=== PATIENT | female | born 1970 | race Caucasian/White ===

== ENCOUNTER 2020-02-16 08:12 | Inpatient (IN) | payer SELFPAY ==
[2020-02-16] MEDS ORDERED: Ondansetron 4 MG/2 ML SDV IVPUSH ONE (08:44)
[2020-02-16] MEDS ORDERED: Sodium Chloride 0.9% 1,000 ML IV SCH (08:45)
--- NOTE | 2020-02-16 08:45 | EDM.PDOC ---
ED HPI GENERAL MEDICAL PROBLEM - General Chief Complaint: General Stated Complaint: BREATHING ISSUES Time Seen by Provider: 02/16/20 08:40 Source of Information: Reports: Patient History Limitations: Reports: No Limitations - History of Present Illness INITIAL COMMENTS - FREE TEXT/NARRATIVE: pt arrived breathing rapidly and short. She has been sob for about 4 days. She has not had a fever. She is coughing. She has also been vomiting for the past 3 days. Onset: Other ( started 3-4 days ago. ) Duration: Hour(s): Location: Reports: Chest, Generalized Associated Symptoms: Reports: Nausea/Vomiting Middle Back Pain Score (Numeric/FACES): 8 - Related Data Allergies Allergy/AdvReac Type Severity Reaction Status Date / Time No Known Allergies Allergy Verified 02/16/20 08:39 Home Meds: Home Meds Gabapentin [Neurontin] 900 mg PO TID 02/16/20 [History] Hydrocodone/Acetaminophen [Hydrocodon-Acetaminoph 7.5-325] 1 tab PO QID PRN 02/16/20 [History] Meloxicam 15 mg PO DAILY 02/16/20 [History] Venlafaxine HCl [Venlafaxine ER] 300 mg PO DAILY 02/16/20 [History] buPROPion [Wellbutrin SR] 300 mg PO BID 02/16/20 [History] metFORMIN [Glucophage] 1,000 mg PO BIDMEALS 02/16/20 [History] traZODone 150 mg PO BEDTIME 02/16/20 [History] Past Medical History HEENT History: Reports: Impaired Vision Cardiovascular History: Reports: Hypertension Endocrine/Metabolic History: Reports: Diabetes, Type II - Infectious Disease History Infectious Disease History: Reports: Chicken Pox - Past Surgical History GI Surgical History: Reports: Appendectomy Musculoskeletal Surgical History: Reports: Arthroscopic Knee Social & Family History - Tobacco Use Smoking Status *Q: Current Every Day Smoker Years of Tobacco use: 7 Packs/Tins Daily: 0.5 - Caffeine Use Caffeine Use: Reports: Soda - Recreational Drug Use Recreational Drug Use: No ED ROS GENERAL - Review of Systems Review Of Systems: See Below Constitutional: Reports: Malaise, Weakness, Decreased Appetite HEENT: Reports: No Symptoms Respiratory: Reports: Shortness of Breath, Wheezing, Cough Cardiovascular: Reports: No Symptoms Endocrine: Reports: No Symptoms GI/Abdominal: Reports: Nausea, Vomiting : Reports: No Symptoms Musculoskeletal: Reports: No Symptoms Skin: Reports: No Symptoms Neurological: Reports: No Symptoms Psychiatric: Reports: Anxiety ED EXAM, GENERAL - Physical Exam Exam: See Below Free Text/Narrative:: pt arrived with increased sob, breathing rapidly and nauseated and vomiting. She has been ill for the past 3-4 days. Exam Limited By: No Limitations General Appearance: Alert, Anxious, Moderate Distress, Other (pupils are equal and reactive. ) Ears: Normal TMs Nose: Normal Inspection Throat/Mouth: Normal Inspection Head: Atraumatic Neck: Normal Inspection Respiratory/Chest: Decreased Breath Sounds, Rhonchi Cardiovascular: Regular Rate, Rhythm, Tachycardia GI/Abdominal: Soft, Non-Tender (Female) Exam: Deferred Rectal (Female) Exam: Deferred Back Exam: Normal Inspection Extremities: Normal Inspection Neurological: Alert, Oriented, Normal Cognition Psychiatric: Anxious Course - Vital Signs Last Recorded V/S: Last Vital Signs Temp 37.2 C 02/16/20 08:18 Pulse 103 H 02/16/20 09:15 Resp 29 H 02/16/20 09:15 BP 120/75 02/16/20 09:15 Pulse Ox 94 L 02/16/20 09:36 - Orders/Labs/Meds Orders: Active Orders 24 hr Category Date Time Status Chest 2V [CR] Stat Exams 02/16/20 08:44 Taken Sodium Chloride 0.9% [Normal Saline] 1,000 ml Med 02/16/20 08:45 Active IV ASDIRECTED Medication Orders Sodium Chloride (Normal Saline) 1,000 mls @ 999 mls/hr IV ASDIRECTED OLYA Last Admin: 02/16/20 08:52 Dose: 999 mls/hr Documented by: RUPA Labs: Laboratory Tests 02/16/20 02/16/20 02/16/20 Range/Units 08:52 08:52 08:52 WBC 18.0 H (4.5-11.0) K/uL RBC 3.75 (3.30-5.50) M/uL Hgb 10.4 L (12.0-15.0) g/dL Hct 33.0 L (36.0-48.0) % MCV 88 (80-98) fL MCH 28 (27-31) pg MCHC 32 (32-36) % Plt Count 295 (150-400) K/uL Neut % (Auto) 85 H (36-66) % Lymph % (Auto) 7 L (24-44) % [place] % (Auto) 7 H (2-6) % Eos % (Auto) 1 L (2-4) % Baso % (Auto) 0 (0-1) % Sodium 139 L (140-148) mmol/L Potassium 3.0 L (3.6-5.2) mmol/L Chloride 100 (100-108) mmol/L Carbon Dioxide 27 (21-32) mmol/L Anion Gap 15.0 H (5.0-14.0) mmol/L BUN 6 L (7-18) mg/dL Creatinine 1.0 (0.6-1.0) mg/dL Est Cr Clr Drug Dosing TNP Estimated GFR (MDRD) 59 L (>60) Glucose 205 H (74-106) mg/dL Calcium 8.6 (8.5-10.1) mg/dL Total Bilirubin 1.1 H (0.2-1.0) mg/dL AST 25 (15-37) U/L ALT 12 (12-78) U/L Alkaline Phosphatase 110 (46-116) U/L NT-Pro-B Natriuret Pep 3227 H (5-125) pg/mL Total Protein 8.0 (6.4-8.2) g/dL Albumin 3.2 L (3.4-5.0) g/dL Globulin 4.8 H (2.3-3.5) g/dL Albumin/Globulin Ratio 0.7 L (1.2-2.2) Urine Color (YELLOW) Urine Appearance (CLEAR) Urine pH (5.0-8.0) Ur Specific [place] (1.008-1.030) Urine Protein (NEGATIVE) mg/dL Urine Glucose (UA) (NEGATIVE) mg/dL Urine Ketones (NEGATIVE) mg/dL Urine Occult Blood (NEGATIVE) Urine Nitrite (NEGATIVE) Urine Bilirubin (NEGATIVE) Urine Urobilinogen (0.2-1.0) EU/dL Ur Leukocyte Esterase (NEGATIVE) Urine RBC (0-5) Urine WBC (0-5) Ur Epithelial Cells Amorphous Sediment Urine Bacteria Urine Mucus SARS-CoV-2 RNA (KORY) (NEGATIVE) 02/16/20 02/16/20 Range/Units 09:18 09:30 WBC (4.5-11.0) K/uL RBC (3.30-5.50) M/uL Hgb (12.0-15.0) g/dL Hct (36.0-48.0) % MCV (80-98) fL MCH (27-31) pg MCHC (32-36) % Plt Count (150-400) K/uL Neut % (Auto) (36-66) % Lymph % (Auto) (24-44) % [place] % (Auto) (2-6) % Eos % (Auto) (2-4) % Baso % (Auto) (0-1) % Sodium (140-148) mmol/L Potassium (3.6-5.2) mmol/L Chloride (100-108) mmol/L Carbon Dioxide (21-32) mmol/L Anion Gap (5.0-14.0) mmol/L BUN (7-18) mg/dL Creatinine (0.6-1.0) mg/dL Est Cr Clr Drug Dosing Estimated GFR (MDRD) (>60) Glucose (74-106) mg/dL Calcium (8.5-10.1) mg/dL Total Bilirubin (0.2-1.0) mg/dL AST (15-37) U/L ALT (12-78) U/L Alkaline Phosphatase (46-116) U/L NT-Pro-B Natriuret Pep (5-125) pg/mL Total Protein (6.4-8.2) g/dL Albumin (3.4-5.0) g/dL Globulin (2.3-3.5) g/dL Albumin/Globulin Ratio (1.2-2.2) Urine Color Yellow (YELLOW) Urine Appearance Clear (CLEAR) Urine pH 6.5 (5.0-8.0) Ur Specific [place] 1.020 (1.008-1.030) Urine Protein 30 H (NEGATIVE) mg/dL Urine Glucose (UA) Negative (NEGATIVE) mg/dL Urine Ketones Negative (NEGATIVE) mg/dL Urine Occult Blood Trace-intact H (NEGATIVE) Urine Nitrite Negative (NEGATIVE) Urine Bilirubin Negative (NEGATIVE) Urine Urobilinogen 1.0 (0.2-1.0) EU/dL Ur Leukocyte Esterase Negative (NEGATIVE) Urine RBC 0-5 (0-5) Urine WBC 0-5 (0-5) Ur Epithelial Cells Few Amorphous Sediment Not seen Urine Bacteria Not seen Urine Mucus Few SARS-CoV-2 RNA (KORY) Negative (NEGATIVE) Meds: Medications Generic Name Dose Route Start Last Admin Trade Name Mounika PRN Reason Stop Dose Admin Sodium Chloride 1,000 mls @ 999 mls/hr 02/16/20 08:45 02/16/20 08:52 Normal Saline IV 999 mls/hr ASDIRECTED OLYA Administration Discontinued Medications Generic Name Dose Route Start Last Admin Trade Name Mounika PRN Reason Stop Dose Admin Ondansetron HCl 4 mg 02/16/20 08:44 02/16/20 08:51 Zofran IVPUSH 02/16/20 08:45 4 mg ONETIME ONE Administration - Re-Assessments/Exams Free Text/Narrative Re-Assessment/Exam: 02/16/20 10:47 pt had a elevated bnp so her fluids were slowed down. Her covid test was neg. Her chest xray shows a diffuse infiltrate bilateral. Her wbc is 18,000. She had o2 sats at 84 on arrival. With 2 liters she is doing much better. She was given zoforan iv and her vomiting has stopped. Departure - Departure Time of Disposition: 10:48 Disposition: Admitted As Inpatient 66 Condition: Fair Clinical Impression: Bilateral pneumonia, Elevated brain natriuretic peptide (BNP) level - Discharge Information Referrals: PCP,None [Primary Care Provider] - Forms: ED Department Discharge Care Plan Goals: admit to Dr Patricia. Sepsis Event Note (ED) - Evaluation Sepsis Screening Result: Possible Sepsis Risk - Focused Exam Vital Signs: Vital Signs Temp Pulse Resp BP Pulse Ox Pulse Ox 02/16/20 09:36 94 L 02/16/20 09:15 103 H 29 H 120/75 95 02/16/20 08:45 103 H 11 L 149/75 H 95 02/16/20 08:18 37.2 C 116 H 27 H 184/82 H 84 L 02/16/20 08:16 117 H 20 184/82 H 93 L - My Orders Last 24 Hours: My Active Orders 02/16/20 08:44 Chest 2V [CR] Stat 02/16/20 08:45 Sodium Chloride 0.9% [Normal Saline] 1,000 ml IV ASDIRECTED - Assessment/Plan Last 24 Hours: My Active Orders 02/16/20 08:44 Chest 2V [CR] Stat 02/16/20 08:45 Sodium Chloride 0.9% [Normal Saline] 1,000 ml IV ASDIRECTED
[2020-02-16] MEDS ORDERED: cefTRIAXone 1 GM in Sodium Chloride 0.9% 50 ML IV SCH (11:30)
--- NOTE | 2020-02-16 11:37 | PCM.HP.2 ---
H&P History of Present Illness - General Date of Service: 02/16/20 Admit Problem/Dx: Admission Diagnosis/Problem Admission Diagnosis/Problem Pneumonia Source of Information: Patient, Provider, RN Notes Reviewed History Limitations: Reports: No Limitations - History of Present Illness Initial Comments - Free Text/Narative: Ms. Ulrich is a 50-year-old woman who was admitted through the emergency department with cough, weakness, and shortness of breath, secondary to bilateral pneumonia. She denies any previous history of underlying pulmonary or cardiac disease. She does have a 30-year smoking history and smoked up until the time she became ill. She is noted slight progression of shortness of breath over the past several months, shortness of breath is been much worse over the past 4 days, to the point where she is short of breath at rest. She also has developed a cough that is been productive of fairly clear sputum. She denies fever, chills, or sweats. Evaluation in the emergency department she is noted to have elevated white blood cell count and infiltrates both lung wood on chest x-ray, right greater than left. COVID-19 test is negative. Middle Back Pain Score (Numeric/FACES): 8 - Related Data Allergies/Adverse Reactions: Allergies Allergy/AdvReac Type Severity Reaction Status Date / Time No Known Allergies Allergy Verified 02/16/20 08:39 Home Medications: Home Meds Gabapentin [Neurontin] 900 mg PO TID 02/16/20 [History] Hydrocodone/Acetaminophen [Hydrocodon-Acetaminoph 7.5-325] 1 tab PO QID PRN 02/16/20 [History] Meloxicam 15 mg PO DAILY 02/16/20 [History] Venlafaxine HCl [Venlafaxine ER] 300 mg PO DAILY 02/16/20 [History] buPROPion [Wellbutrin SR] 300 mg PO BID 02/16/20 [History] metFORMIN [Glucophage] 1,000 mg PO BIDMEALS 02/16/20 [History] traZODone 150 mg PO BEDTIME 02/16/20 [History] Past Medical History HEENT History: Reports: Impaired Vision Cardiovascular History: Reports: Hypertension Endocrine/Metabolic History: Reports: Diabetes, Type II - Infectious Disease History Infectious Disease History: Reports: Chicken Pox - Past Surgical History GI Surgical History: Reports: Appendectomy Musculoskeletal Surgical History: Reports: Arthroscopic Knee Social & Family History - Tobacco Use Smoking Status *Q: Current Every Day Smoker Years of Tobacco use: 7 Packs/Tins Daily: 0.5 - Caffeine Use Caffeine Use: Reports: Soda - Recreational Drug Use Recreational Drug Use: No H&P Review of Systems - Review of Systems: Review Of Systems: See Below General: Reports: Malaise, Weakness, Fatigue, Decreased Appetite. Denies: Fever, Chills HEENT: Reports: No Symptoms Pulmonary: Reports: Shortness of Breath, Cough, Hemoptysis. Denies: Wheezing, Pleuritic Chest Pain, Sputum Cardiovascular: Reports: Dyspnea on Exertion. Denies: Chest Pain, Palpitations, Orthopnea, PND, Edema, Lightheadedness, Syncope, Claudication Gastrointestinal: Reports: No Symptoms Genitourinary: Reports: No Symptoms Musculoskeletal: Reports: Back Pain (Chronic) Skin: Reports: No Symptoms Psychiatric: Reports: No Symptoms Neurological: Reports: No Symptoms Hematologic/Lymphatic: Reports: No Symptoms Immunologic: Reports: No Symptoms Exam - Exam Exam: See Below - Vital Signs Vital Signs: Last Vital Signs Temp 98.9 F 02/16/20 08:18 Pulse 103 H 02/16/20 09:15 Resp 29 H 02/16/20 09:15 BP 120/75 02/16/20 09:15 Pulse Ox 94 L 02/16/20 09:36 Weight: 185 lb - Exam Quality Assessment: Supplemental Oxygen, DVT Prophylaxis General: Alert, Oriented, Cooperative, Moderate Distress HEENT: Conjunctiva Clear, Hearing Intact, Mucosa Moist & Start, Normal Nasal Septum, Posterior Pharynx Clear, Pupils Equal Neck: Supple, Trachea Midline, +2 Carotid Pulse wo Bruit Lungs: Clear to Auscultation, Normal Respiratory Effort, Decreased Breath Sounds. No: Crackles, Rales, Rhonchi, Wheezing Cardiovascular: Regular Rate, Regular Rhythm, Normal S1, Normal S2. No: Systolic Murmur, Diastolic Murmur GI/Abdominal Exam: Soft, Non-Tender, No Organomegaly, No Distention Back Exam: Normal Inspection, Full Range of Motion Extremities: Non-Tender, No Pedal Edema Skin: Warm, Dry Neurological: Cranial Nerves Intact, Strength Equal Bilateral, Normal Speech, Normal Tone, Sensation Intact. No: Focal Deficit Neuro Extensive - Mental Status: Alert, Oriented x3, Normal Mood/Affect, Normal Cognition, Memory Intact - Patient Data Lab Results Last 24 hrs: Laboratory Results - last 24 hr 02/16/20 02/16/20 02/16/20 Range/Units 08:52 08:52 08:52 WBC 18.0 H (4.5-11.0) K/uL RBC 3.75 (3.30-5.50) M/uL Hgb 10.4 L (12.0-15.0) g/dL Hct 33.0 L (36.0-48.0) % MCV 88 (80-98) fL MCH 28 (27-31) pg MCHC 32 (32-36) % Plt Count 295 (150-400) K/uL Neut % (Auto) 85 H (36-66) % Lymph % (Auto) 7 L (24-44) % [place] % (Auto) 7 H (2-6) % Eos % (Auto) 1 L (2-4) % Baso % (Auto) 0 (0-1) % Puncture Site ABG pH (7.350-7.450) ABG pCO2 (35.0-42.0) mmHg ABG pO2 (75.0-100.0) mmHg ABG HCO3 (22.0-26.0) mmol/L ABG Total CO2 (21.0-25.0) mmol/L ABG O2 Saturation (95.0-98.0) % ABG O2 Content (15.0-23.0) %vol ABG Base Excess mm/L ABG Hemoglobin (12.0-16.0) g/dL ABG Oxyhemoglobin % ABG Carboxyhemoglobin (0.0-1.6) % ABG Methemoglobin % Laci Test O2 Delivery Device Oxygen Flow Rate L Sodium 139 L (140-148) mmol/L Potassium 3.0 L (3.6-5.2) mmol/L Chloride 100 (100-108) mmol/L Carbon Dioxide 27 (21-32) mmol/L Anion Gap 15.0 H (5.0-14.0) mmol/L BUN 6 L (7-18) mg/dL Creatinine 1.0 (0.6-1.0) mg/dL Est Cr Clr Drug Dosing TNP Estimated GFR (MDRD) 59 L (>60) Glucose 205 H (74-106) mg/dL Calcium 8.6 (8.5-10.1) mg/dL Total Bilirubin 1.1 H (0.2-1.0) mg/dL AST 25 (15-37) U/L ALT 12 (12-78) U/L Alkaline Phosphatase 110 (46-116) U/L NT-Pro-B Natriuret Pep 3227 H (5-125) pg/mL Total Protein 8.0 (6.4-8.2) g/dL Albumin 3.2 L (3.4-5.0) g/dL Globulin 4.8 H (2.3-3.5) g/dL Albumin/Globulin Ratio 0.7 L (1.2-2.2) Urine Color (YELLOW) Urine Appearance (CLEAR) Urine pH (5.0-8.0) Ur Specific [place] (1.008-1.030) Urine Protein (NEGATIVE) mg/dL Urine Glucose (UA) (NEGATIVE) mg/dL Urine Ketones (NEGATIVE) mg/dL Urine Occult Blood (NEGATIVE) Urine Nitrite (NEGATIVE) Urine Bilirubin (NEGATIVE) Urine Urobilinogen (0.2-1.0) EU/dL Ur Leukocyte Esterase (NEGATIVE) Urine RBC (0-5) Urine WBC (0-5) Ur Epithelial Cells Amorphous Sediment Urine Bacteria Urine Mucus SARS-CoV-2 RNA (KORY) (NEGATIVE) 02/16/20 02/16/20 02/16/20 Range/Units 09:18 09:30 10:56 WBC (4.5-11.0) K/uL RBC (3.30-5.50) M/uL Hgb (12.0-15.0) g/dL Hct (36.0-48.0) % MCV (80-98) fL MCH (27-31) pg MCHC (32-36) % Plt Count (150-400) K/uL Neut % (Auto) (36-66) % Lymph % (Auto) (24-44) % [place] % (Auto) (2-6) % Eos % (Auto) (2-4) % Baso % (Auto) (0-1) % Puncture Site Lt brachial ABG pH 7.473 H (7.350-7.450) ABG pCO2 36.6 (35.0-42.0) mmHg ABG pO2 59.0 L (75.0-100.0) mmHg ABG HCO3 26.5 H (22.0-26.0) mmol/L ABG Total CO2 24.5 (21.0-25.0) mmol/L ABG O2 Saturation 89.9 L (95.0-98.0) % ABG O2 Content 11.9 L (15.0-23.0) %vol ABG Base Excess 3.3 mm/L ABG Hemoglobin 9.6 L (12.0-16.0) g/dL ABG Oxyhemoglobin 87.3 % ABG Carboxyhemoglobin 2.1 H (0.0-1.6) % ABG Methemoglobin 0.8 % Laci Test N/a O2 Delivery Device Nasal cannula Oxygen Flow Rate 2.0 L Sodium (140-148) mmol/L Potassium (3.6-5.2) mmol/L Chloride (100-108) mmol/L Carbon Dioxide (21-32) mmol/L Anion Gap (5.0-14.0) mmol/L BUN (7-18) mg/dL Creatinine (0.6-1.0) mg/dL Est Cr Clr Drug Dosing Estimated GFR (MDRD) (>60) Glucose (74-106) mg/dL Calcium (8.5-10.1) mg/dL Total Bilirubin (0.2-1.0) mg/dL AST (15-37) U/L ALT (12-78) U/L Alkaline Phosphatase (46-116) U/L NT-Pro-B Natriuret Pep (5-125) pg/mL Total Protein (6.4-8.2) g/dL Albumin (3.4-5.0) g/dL Globulin (2.3-3.5) g/dL Albumin/Globulin Ratio (1.2-2.2) Urine Color Yellow (YELLOW) Urine Appearance Clear (CLEAR) Urine pH 6.5 (5.0-8.0) Ur Specific [place] 1.020 (1.008-1.030) Urine Protein 30 H (NEGATIVE) mg/dL Urine Glucose (UA) Negative (NEGATIVE) mg/dL Urine Ketones Negative (NEGATIVE) mg/dL Urine Occult Blood Trace-intact H (NEGATIVE) Urine Nitrite Negative (NEGATIVE) Urine Bilirubin Negative (NEGATIVE) Urine Urobilinogen 1.0 (0.2-1.0) EU/dL Ur Leukocyte Esterase Negative (NEGATIVE) Urine RBC 0-5 (0-5) Urine WBC 0-5 (0-5) Ur Epithelial Cells Few Amorphous Sediment Not seen Urine Bacteria Not seen Urine Mucus Few SARS-CoV-2 RNA (KORY) Negative (NEGATIVE) Result Diagrams: 02/16/20 08:52 02/16/20 08:52 Sepsis Event Note - Evaluation Sepsis Screening Result: Possible Sepsis Risk - Focused Exam Vital Signs: Vital Signs Temp Pulse Resp BP Pulse Ox Pulse Ox 02/16/20 09:36 94 L 02/16/20 09:15 103 H 29 H 120/75 95 02/16/20 08:45 103 H 11 L 149/75 H 95 02/16/20 08:18 98.9 F 116 H 27 H 184/82 H 84 L 02/16/20 08:16 117 H 20 184/82 H 93 L *Q Meaningful Use (ADM) - VTE Risk Assess *Q Each Risk Factor Represents 1 Point: Age 41 - 59 years, Obesity ( BMI > 25 kg/m2), Serious lung disease including pneumonia Total Score 1 Point Risk Factors: 3 Each Risk Factor Represents 2 Points: None Total Score 2 Point Risk Factors: 0 Each Risk Factor Represents 3 Points: None Total Score 3 Point Risk Factors: 0 Each Risk Factor Represents 5 Points: None Total Score 5 Point Risk Factors: 0 Venous Thromboembolism Risk Factor Score *Q: 3 Problem List Initiated/Reviewed/Updated: Yes Orders Last 24hrs: Active Orders 24 hr Category Date Time Status Patient Status Manage Transfer [TRANSFER] Routine ADT 02/16/20 11:22 Active Chest 2V [CR] Stat Exams 02/16/20 08:44 Taken CULTURE BLOOD [BC] Stat Lab 02/16/20 11:21 Ordered CULTURE BLOOD [BC] Stat Lab 02/16/20 11:21 Ordered Doxycycline [Vibramycin] 100 mg Med 02/16/20 12:00 Active Sodium Chloride 0.9% [Normal Saline] 100 ml IV Q12H Sodium Chloride 0.9% [Normal Saline] 1,000 ml Med 02/16/20 08:45 Active IV ASDIRECTED cefTRIAXone [Rocephin] 1 gm Med 02/16/20 11:30 Active Sodium Chloride 0.9% [Normal Saline] 50 ml IV Q24H Blood Culture x2 Reflex Set [OM.PC] Urgent Oth 02/16/20 11:20 Ordered Resuscitation Status Routine Resus Stat 02/16/20 11:24 Ordered Medication Orders Sodium Chloride (Normal Saline) 1,000 mls @ 999 mls/hr IV ASDIRECTED [facility] Last Admin: 02/16/20 08:52 Dose: 999 mls/hr Documented by: RUPA Doxycycline Hyclate 100 mg/ (Sodium Chloride) 100 mls @ 100 mls/hr IV Q12H [facility] Ceftriaxone Sodium 1 gm/ (Sodium Chloride) 50 mls @ 100 mls/hr IV Q24H [facility] Assessment/Plan Comment:: ASSESSMENT AND PLAN BILATERAL [id number] pneumonia, COVID negative. Longstanding smoking history, no history of underlying pulmonary or cardiac disease. Currently oxygenating well on supplemental oxygen. -Blood cultures pending -IV doxycycline and ceftriaxone HYPOXIC RESPIRATORY COMPROMISE-secondary to bilateral pneumonia -Supplemental oxygen as needed -Continuous pulse oximetry -Consider use of noninvasive positive pressure ventilation if she experiences further compromise in respiratory status TYPE 2 DIABETES MELLITUS -Continue metformin -4 times daily glucometers -Low-dose sliding scale Humalog MAINTENANCE ISSUES -DVT prophylaxis; Lovenox 40 mg subcu daily -GI prophylaxis; not indicated -Romero catheter; not indicated -Nutrition; consistent carbohydrate diet -Nicotine dependence; nicotine patch and nicotine gum CODE STATUS-FULL CODE ADMISSION STATUS-patient will be admitted to inpatient status, expect at least a 2 night hospital stay for evaluation and management of problems as outlined above. At the time of this admission I do not reasonably expected evaluation and management of this problem will require more than a 96 hour hospital stay. DISPOSITION-anticipate discharge to home after the hospital stay. PRIMARY CARE PROVIDER-Dr. Irving - Mortality Measure Prognosis:: Good
[2020-02-16] MEDS ORDERED: Doxycycline 100 MG in Sodium Chloride 0.9% 100 ML IV SCH (12:00)
[2020-02-16] MEDS ORDERED: Glucose Gel 15 GM in 37.5 GM Tube PO PRN (12:16)
[2020-02-16] MEDS ORDERED: Enoxaparin 40 MG/0.4 ML Syringe SUBCUT SCH (12:16)
[2020-02-16] MEDS ORDERED: Polyethylene Glycol 3350 Powder 17 GM Packet PO PRN (12:16)
[2020-02-16] MEDS ORDERED: Nicotine 14 MG/24 Hr Patch TRDERM SCH (12:16)
[2020-02-16] MEDS ORDERED: Ondansetron 4 MG/2 ML SDV IV PRN (12:16)
[2020-02-16] MEDS ORDERED: Acetaminophen 325 MG Tab PO PRN (12:16)
[2020-02-16] MEDS ORDERED: Nicotine Polacrilex 2 MG Gum CHEW PRN (12:16)
[2020-02-16] MEDS ORDERED: 50% Dextrose in Water 50 ML Syringe IV PRN (12:16)
[2020-02-16] MEDS ORDERED: Sodium Chloride 0.9% 10 ML Syringe FLUSH PRN (12:16)
[2020-02-16] MEDS: Acetaminophen/HYDROcodone 325-7.5 MG Tab PO PRN ×3 (12:43→21:22)
[2020-02-16] MEDS: Gabapentin 300 MG Cap PO SCH ×2 (13:17→21:08)
[2020-02-16] MEDS: Nicotine 14 MG/24 Hr Patch TRDERM SCH (13:18)
[2020-02-16] MEDS: Enoxaparin 40 MG/0.4 ML Syringe SUBCUT SCH (13:18)
[2020-02-16] MEDS: Sodium Chloride 0.9% 1,000 ML IV SCH ×2 (13:18→21:09)
[2020-02-16] MEDS ORDERED: Non-Formulary Medication 1 Each (Metformin [Glucophage] 1,000 MG) PO SCH (17:00)
[2020-02-16] MEDS: metFORMIN 500 MG Tab PO SCH (18:14)
[2020-02-16] MEDS: Insulin Lispro 100 Unit/ML 3 ML KwikPen SUBCUT SCH ×2 (18:15→21:17)
[2020-02-16] MEDS ORDERED: Non-Formulary Medication 1 Each (Trazodone [Trazodone] 150 MG) PO SCH (21:00)
[2020-02-16] MEDS: traZODone 50 MG Tab PO SCH (21:08)
[2020-02-16] MEDS: Albuterol 0.083% 2.5 MG/3 ML Neb Soln NEB PRN (21:08)
[2020-02-16] MEDS: buPROPion 150 MG Tab.SR PO SCH (21:08)
[2020-02-16] MEDS: Venlafaxine 75 MG Cap.ER PO SCH (21:11)
[2020-02-16] MEDS: Doxycycline 100 MG in Sodium Chloride 0.9% 100 ML IV SCH (23:41)
[2020-02-17] MEDS: Acetaminophen/HYDROcodone 325-7.5 MG Tab PO PRN ×3 (02:38→18:04)
[2020-02-17] MEDS: Sodium Chloride 0.9% 1,000 ML IV SCH (06:09)
[2020-02-17] MEDS: Insulin Lispro 100 Unit/ML 3 ML KwikPen SUBCUT SCH ×4 (07:39→20:42)
[2020-02-17] MEDS: metFORMIN 500 MG Tab PO SCH ×2 (07:44→18:00)
[2020-02-17] MEDS: Venlafaxine 75 MG Cap.ER PO SCH (08:49)
[2020-02-17] MEDS: buPROPion 150 MG Tab.SR PO SCH ×2 (08:50→20:40)
[2020-02-17] MEDS: Gabapentin 300 MG Cap PO SCH ×3 (08:50→20:39)
[2020-02-17] MEDS: Meloxicam 7.5 MG Tab PO SCH (08:50)
[2020-02-17] MEDS ORDERED: Venlafaxine 75 MG Cap.ER PO SCH (09:00)
[2020-02-17] MEDS ORDERED: VENLAFAXINE HCL 300 MG PO SCH (09:00)
[2020-02-17] MEDS ORDERED: Non-Formulary Medication 1 Each (Meloxicam [Meloxicam] 15 MG) PO SCH (09:00)
[2020-02-17] MEDS ORDERED: Potassium Chloride 20 MEQ Tab.ER PO ONE ×2 (09:00→14:00)
[2020-02-17] MEDS ORDERED: cefTRIAXone 1 GM in Sodium Chloride 0.9% 50 ML IV SCH (11:30)
[2020-02-17] MEDS ORDERED: Albuterol/Ipratropium 3.0-0.5 MG/3 ML Neb Soln ONE (11:46)
[2020-02-17] MEDS: Albuterol/Ipratropium 3.0-0.5 MG/3 ML Neb Soln NEB SCH ×3 (11:49→20:39)
[2020-02-17] MEDS: Doxycycline 100 MG in Sodium Chloride 0.9% 100 ML IV SCH (12:16)
[2020-02-17] MEDS ORDERED: Sodium Chloride 0.9% 1,000 ML IV SCH (13:15)
--- NOTE | 2020-02-17 13:19 | PCM.PN ---
- General Info Date of Service: 02/17/20 Subjective Update: Ms. Ulrich continues to experience significant shortness of breath and hypoxia with minimal exertion. We have discussed ongoing management, she prefers to hold off on BiPAP at this time unless she experiences further respiratory compromise. She has been mildly tachycardic and has noted mild increase in respiratory rate. She has remained afebrile with good improvement in white blood cell count. Functional Status: Reports: Tolerating Diet, Urinating - Review of Systems General: Reports: Weakness, Malaise. Denies: Fever, Chills Pulmonary: Reports: Shortness of Breath, Cough. Denies: Pleuritic Chest Pain, Sputum, Hemoptysis, Wheezing Cardiovascular: Reports: Dyspnea on Exertion. Denies: Chest Pain, Palpitations, Orthopnea, PND, Edema, Lightheadedness Gastrointestinal: Reports: No Symptoms Genitourinary: Reports: No Symptoms - Patient Data Vitals - Most Recent: Last Vital Signs Temp 98.5 F 02/17/20 10:50 Pulse 111 H 02/17/20 10:50 Resp 23 H 02/17/20 10:50 BP 166/71 H 02/17/20 10:50 Pulse Ox 91 L 02/17/20 12:46 Weight - Most Recent: 220 lb 3.2 oz I&O - Last 24 Hours: Intake & Output 02/16/20 02/17/20 02/17/20 22:59 06:59 14:59 Intake Total 1116 1532 755 Output Total 1000 1500 600 Balance 116 32 155 Lab Results Last 24 Hours: Laboratory Results - last 24 hr 02/16/20 02/16/20 02/17/20 Range/Units 16:51 20:59 05:11 WBC 12.1 H (4.5-11.0) K/uL RBC 3.08 L (3.30-5.50) M/uL Hgb 8.4 L D (12.0-15.0) g/dL Hct 27.7 L (36.0-48.0) % MCV 90 (80-98) fL MCH 27 (27-31) pg MCHC 30 L (32-36) % Plt Count 224 (150-400) K/uL Neut % (Auto) 72 H (36-66) % Lymph % (Auto) 17 L (24-44) % [place] % (Auto) 8 H (2-6) % Eos % (Auto) 3 (2-4) % Baso % (Auto) 0 (0-1) % Sodium (140-148) mmol/L Potassium (3.6-5.2) mmol/L Chloride (100-108) mmol/L Carbon Dioxide (21-32) mmol/L Anion Gap (5.0-14.0) mmol/L BUN (7-18) mg/dL Creatinine (0.6-1.0) mg/dL Est Cr Clr Drug Dosing mL/min Estimated GFR (MDRD) (>60) Glucose (74-106) mg/dL POC Glucose 198 H 192 H (74-106) MG/DL Calcium (8.5-10.1) mg/dL Magnesium (1.8-2.4) mg/dL 02/17/20 02/17/20 02/17/20 Range/Units 05:11 07:30 11:30 WBC (4.5-11.0) K/uL RBC (3.30-5.50) M/uL Hgb (12.0-15.0) g/dL Hct (36.0-48.0) % MCV (80-98) fL MCH (27-31) pg MCHC (32-36) % Plt Count (150-400) K/uL Neut % (Auto) (36-66) % Lymph % (Auto) (24-44) % [place] % (Auto) (2-6) % Eos % (Auto) (2-4) % Baso % (Auto) (0-1) % Sodium 142 (140-148) mmol/L Potassium 3.0 L (3.6-5.2) mmol/L Chloride 105 (100-108) mmol/L Carbon Dioxide 27 (21-32) mmol/L Anion Gap 13.0 (5.0-14.0) mmol/L BUN 7 (7-18) mg/dL Creatinine 1.0 (0.6-1.0) mg/dL Est Cr Clr Drug Dosing 63.01 mL/min Estimated GFR (MDRD) 59 L (>60) Glucose 107 H (74-106) mg/dL POC Glucose 126 H 188 H (74-106) MG/DL Calcium 8.2 L (8.5-10.1) mg/dL Magnesium 1.8 (1.8-2.4) mg/dL Mehran Results Last 24 Hours: Microbiology 02/16/20 11:34 Aerobic Blood Culture - Preliminary Blood - Arm, Right NO GROWTH AFTER 1 DAY Anaerobic Blood Culture - Preliminary NO GROWTH AFTER 1 DAY 02/16/20 10:52 Aerobic Blood Culture - Preliminary Blood - Artery NO GROWTH AFTER 1 DAY Anaerobic Blood Culture - Preliminary NO GROWTH AFTER 1 DAY Med Orders - Current: Current Medications Acetaminophen (Tylenol) 650 mg PO Q4H PRN PRN Reason: Pain (Mild 1-3)/fever Hydrocodone Bitart/Acetaminophen (Mission 325-7.5 Mg) 1 tab PO Q4H PRN PRN Reason: Pain (moderate 4-6) Last Admin: 02/17/20 07:44 Dose: 1 tab Documented by: Albuterol (Proventil Neb Soln) 2.5 mg NEB Q4H PRN PRN Reason: Shortness Of Breath/wheezing Last Admin: 02/16/20 21:08 Dose: 2.5 mg Documented by: Albuterol/Ipratropium (Duoneb 3.0-0.5 Mg/3 Ml) 3 ml NEB QIDRT [facility] Last Admin: 02/17/20 11:49 Dose: 3 ml Documented by: Bupropion HCl (Wellbutrin Sr) 150 mg PO BID [facility] Dextrose (Glutose 15) 15 gm PO ONETIME PRN PRN Reason: Hypoglycemia Dextrose/Water (Dextrose 50% In Water) 50 ml IV ONETIME PRN PRN Reason: Hypoglycemia Enoxaparin Sodium (Lovenox) 40 mg SUBCUT Q24H [facility] Last Admin: 02/16/20 13:18 Dose: 40 mg Documented by: Gabapentin (Neurontin) 900 mg PO TID [facility] Last Admin: 02/17/20 08:50 Dose: 900 mg Documented by: Ceftriaxone Sodium 1 gm/ (Sodium Chloride) 50 mls @ 100 mls/hr IV Q24H [facility] Last Admin: 02/17/20 11:27 Dose: 100 mls/hr Documented by: Doxycycline Hyclate 100 mg/ (Sodium Chloride) 100 mls @ 100 mls/hr IV Q12H [facility] Last Admin: 02/17/20 12:16 Dose: 100 mls/hr Documented by: Sodium Chloride (Normal Saline) 1,000 mls @ 50 mls/hr IV ASDIRECTED [facility] Insulin Human Lispro (Humalog) 0 unit SUBCUT QIDACANDBED [facility]; Protocol Last Admin: 02/17/20 11:29 Dose: 1 unit Documented by: Meloxicam (Mobic) 15 mg PO DAILY [facility] Last Admin: 02/17/20 08:50 Dose: 15 mg Documented by: Metformin HCl (Glucophage) 1,000 mg PO BIDMEALS [facility] Last Admin: 02/17/20 07:44 Dose: 1,000 mg Documented by: Nicotine (Habitrol) 14 mg TRDERM Q24H [facility] Last Admin: 02/16/20 13:18 Dose: Not Given Documented by: Nicotine Polacrilex (Nicorelief) 2 mg CHEW Q1H PRN PRN Reason: Other Ondansetron HCl (Zofran) 4 mg IV Q4H PRN PRN Reason: Nausea/Vomiting Last Admin: 02/16/20 23:41 Dose: 4 mg Documented by: Polyethylene Glycol (Miralax) 17 gm PO DAILY PRN PRN Reason: Constipation Potassium Chloride (Klor-Con M20) 40 meq PO ONETIME ONE Stop: 02/17/20 14:01 Sodium Chloride (Saline Flush) 10 ml FLUSH ASDIRECTED PRN PRN Reason: Keep Vein Open Trazodone HCl (Trazodone) 150 mg PO BEDTIME [facility] Last Admin: 02/16/20 21:08 Dose: 150 mg Documented by: Venlafaxine HCl (Effexor Xr) 300 mg PO DAILY [facility] Last Admin: 02/17/20 08:49 Dose: 300 mg Documented by: Discontinued Medications Albuterol/Ipratropium (Duoneb 3.0-0.5 Mg/3 Ml) Confirm Administered Dose 3 ml .ROUTE .STK-MED ONE Stop: 02/17/20 11:47 Last Admin: 02/17/20 11:50 Dose: Not Given Documented by: Bupropion HCl (Wellbutrin Sr) 300 mg PO BID [facility] Last Admin: 02/17/20 08:50 Dose: 300 mg Documented by: Sodium Chloride (Normal Saline) 1,000 mls @ 999 mls/hr IV ASDIRECTED [facility] Last Admin: 02/16/20 08:52 Dose: 999 mls/hr Documented by: Doxycycline Hyclate 100 mg/ (Sodium Chloride) 100 mls @ 100 mls/hr IV Q12H [facility] Last Admin: 02/16/20 12:15 Dose: 100 mls/hr Documented by: Ceftriaxone Sodium 1 gm/ (Sodium Chloride) 50 mls @ 100 mls/hr IV Q24H [facility] Last Admin: 02/16/20 11:51 Dose: 100 mls/hr Documented by: Sodium Chloride (Normal Saline) 1,000 mls @ 125 mls/hr IV ASDIRECTED [facility] Last Admin: 02/17/20 06:09 Dose: 125 mls/hr Documented by: Ondansetron HCl (Zofran) 4 mg IVPUSH ONETIME ONE Stop: 02/16/20 08:45 Last Admin: 02/16/20 08:51 Dose: 4 mg Documented by: Potassium Chloride (Klor-Con M20) 40 meq PO ONETIME ONE Stop: 02/17/20 09:01 Last Admin: 02/17/20 08:56 Dose: 40 meq Documented by: Venlafaxine HCl (Effexor Xr) 300 mg PO DAILY [facility] - Exam Quality Assessment: Supplemental Oxygen, DVT Prophylaxis General: Alert, Oriented, Cooperative, Moderate Distress Lungs: Decreased Breath Sounds, Rhonchi. No: Rales, Rub, Wheezing Cardiovascular: Regular Rhythm, No Murmurs, Tachycardia GI/Abdominal Exam: Soft, Non-Tender, No Organomegaly, No Distention Extremities: Non-Tender, No Pedal Edema Sepsis Event Note - Evaluation Sepsis Screening Result: Sepsis Risk - Focused Exam Vital Signs: Vital Signs Temp Pulse Resp BP Pulse Ox 02/17/20 12:46 91 L 02/17/20 10:50 98.5 F 111 H 23 H 166/71 H 86 L 02/17/20 07:32 96.6 F L 97 20 144/77 H 95 02/17/20 07:30 94 L 02/17/20 02:36 97.5 F 98 17 144/72 H 94 L 02/17/20 01:37 95 - Problem List Review Problem List Initiated/Reviewed/Updated: Yes - My Orders Last 24 Hours: My Active Orders 02/16/20 12:16 Acetaminophen [TylenoL] 650 mg PO Q4H PRN Acetaminophen/HYDROcodone [Mission 325-7.5 MG] 1 tab PO Q4H PRN Albuterol [Proventil Neb Soln] 2.5 mg NEB Q4H PRN Dextrose 50% in Water 50 ml IV ONETIME PRN Dextrose [Glutose 15] 15 gm PO ONETIME PRN Nicotine Polacrilex [Nicorelief] 2 mg CHEW Q1H PRN Ondansetron [Zofran] 4 mg IV Q4H PRN Sodium Chloride 0.9% [Saline Flush] 10 ml FLUSH ASDIRECTED PRN polyethylene glycoL 3350 [MiraLAX] 17 gm PO DAILY PRN 02/16/20 12:16 Patient Status [ADT] Routine Ambulate [RC] QID Communication Order [RC] STAT Diabetes Education [RC] Click to Edit Height and Weight [RC] DAILY Intake and Output [RC] QSHIFT Notify Provider Vital Signs [RC] ASDIRECTED Notify Provider [RC] PRN Oxygen Therapy [RC] PRN Peripheral IV Care [RC] . DIRECTED Pulse Oximetry [RC] CONTINUOUS RT Aerosol Therapy [RC] ASDIRECTED Up With Assistance [RC] ASDIRECTED Up to Chair [RC] QID VTE/DVT Education [RC] Per Unit Routine Vital Signs [RC] Q4H Peripheral IV Insertion Adult [OM.PC] Routine 02/16/20 14:00 Enoxaparin [Lovenox] 40 mg SUBCUT Q24H Gabapentin [Neurontin] 900 mg PO TID Nicotine [Habitrol] 14 mg TRDERM Q24H 02/16/20 17:00 Insulin Lispro [HumaLOG] See Protocol SUBCUT QIDACANDBED metFORMIN [Glucophage] 1,000 mg PO BIDMEALS 02/16/20 21:00 traZODone 150 mg PO BEDTIME 02/17/20 00:00 Doxycycline [Vibramycin] 100 mg Sodium Chloride 0.9% [Normal Saline] 100 ml IV Q12H 02/17/20 09:00 Meloxicam [Mobic] 15 mg PO DAILY 02/17/20 11:00 Albuterol/Ipratropium [DuoNeb 3.0-0.5 MG/3 ML] 3 ml NEB QIDRT 02/17/20 11:30 cefTRIAXone [Rocephin] 1 gm Sodium Chloride 0.9% [Normal Saline] 50 ml IV Q24H 02/17/20 13:09 Potassium Chloride [Klor-Con M20] 40 meq PO ONETIME ONE 02/17/20 13:15 Sodium Chloride 0.9% @ 50 MLS/HR(1000ml) Sodium Chloride 0.9% [Normal Saline] 1,000 ml IV ASDIRECTED 02/17/20 16:30 GLUCOSE POC LAB TO COLLECT JPM [POC] QIDACANDBED 02/17/20 21:00 GLUCOSE POC LAB TO COLLECT JPM [POC] QIDACANDBED buPROPion [Wellbutrin SR] 150 mg PO BID 02/18/20 05:00 BASIC METABOLIC PANEL,BMP [CHEM] Timed CBC WITH AUTO DIFF [HEME] Timed 02/18/20 07:30 GLUCOSE POC LAB TO COLLECT JPM [POC] QIDACANDBED 02/18/20 11:30 GLUCOSE POC LAB TO COLLECT JPM [POC] QIDACANDBED 02/18/20 16:30 GLUCOSE POC LAB TO COLLECT JPM [POC] QIDACANDBED 02/18/20 21:00 GLUCOSE POC LAB TO COLLECT JPM [POC] QIDACANDBED 02/19/20 07:30 GLUCOSE POC LAB TO COLLECT JPM [POC] QIDACANDBED 02/19/20 11:30 GLUCOSE POC LAB TO COLLECT JPM [POC] QIDACANDBED 02/19/20 16:30 GLUCOSE POC LAB TO COLLECT JPM [POC] QIDACANDBED 02/19/20 21:00 GLUCOSE POC LAB TO COLLECT JPM [POC] QIDACANDBED 02/20/20 07:30 GLUCOSE POC LAB TO COLLECT JPM [POC] QIDACANDBED 02/20/20 11:30 GLUCOSE POC LAB TO COLLECT JPM [POC] QIDACANDBED 02/20/20 16:30 GLUCOSE POC LAB TO COLLECT JPM [POC] QIDACANDBED 02/20/20 21:00 GLUCOSE POC LAB TO COLLECT JPM [POC] QIDACANDBED 02/21/20 07:30 GLUCOSE POC LAB TO COLLECT JPM [POC] QIDACANDBED 02/21/20 11:30 GLUCOSE POC LAB TO COLLECT JPM [POC] QIDACANDBED - Plan Plan:: ASSESSMENT AND PLAN BILATERAL [id number] pneumonia, COVID negative. Longstanding smoking history, no history of underlying pulmonary or cardiac disease. Short of breath and hypoxic with minimal exertion, mild resting sinus tachycardia -Blood cultures pending -IV doxycycline and ceftriaxone HYPOXIC RESPIRATORY COMPROMISE-secondary to bilateral pneumonia -Supplemental oxygen as needed -Continuous pulse oximetry -Consider use of noninvasive positive pressure ventilation if she experiences further compromise in respiratory status TYPE 2 DIABETES MELLITUS -Continue metformin -4 times daily glucometers -Low-dose sliding scale Humalog MAINTENANCE ISSUES -DVT prophylaxis; Lovenox 40 mg subcu daily -GI prophylaxis; not indicated -Romero catheter; not indicated -Nutrition; consistent carbohydrate diet -Nicotine dependence; nicotine patch and nicotine gum CODE STATUS-FULL CODE ADMISSION STATUS-patient will be admitted to inpatient status, expect at least a 2 night hospital stay for evaluation and management of problems as outlined above. At the time of this admission I do not reasonably expected evaluation and management of this problem will require more than a 96 hour hospital stay. DISPOSITION-anticipate discharge to home after the hospital stay. PRIMARY CARE PROVIDER-Dr. Irving
[2020-02-17] MEDS: Nicotine 14 MG/24 Hr Patch TRDERM SCH (14:12)
[2020-02-17] MEDS: Levofloxacin/Dextrose 5%-Water 750 MG in Premix Bag 1 BAG IV SCH (14:42)
[2020-02-17] MEDS ORDERED: LORazepam 2 MG/ML SDV IVPUSH ONE (15:25)
[2020-02-17] MEDS: Metoprolol Succinate 25 MG Tab.ER PO SCH (15:40)
[2020-02-17] MEDS: Enoxaparin 40 MG/0.4 ML Syringe SUBCUT SCH (15:42)
[2020-02-17] MEDS: Piperacillin/Tazobactam/Dext 3.375 GM in Premix Bag 1 BAG IV SCH ×2 (15:52→21:28)
--- NOTE | 2020-02-17 17:27 | PCM.SN.2 ---
- Free Text/Narrative Note: Ms. Ulrich unfortunately experienced increased respiratory compromise this afternoon with increase in respiratory rate and decrease in oxygenation. She was transferred to the intensive care unit and has been started on noninvasive positive pressure ventilation. Respiratory rates had increased into the upper 30s and have improved with use of the BiPAP. Follow-up blood gases were obtained and show very adequate oxygenation as well as improvement in her PCO2 level. She has been somewhat agitated and anxious on the BiPAP and is receiving lorazepam IV as needed. Because of her decline doxycycline and ceftriaxone were discontinued and she has been placed on levofloxacin and Zosyn.
[2020-02-17] MEDS: LORazepam 2 MG/ML SDV IVPUSH PRN ×3 (18:01→23:42)
[2020-02-17] MEDS: traZODone 50 MG Tab PO SCH (20:40)
[2020-02-18] MEDS: LORazepam 2 MG/ML SDV IVPUSH PRN ×4 (01:40→08:31)
[2020-02-18] MEDS: Piperacillin/Tazobactam/Dext 3.375 GM in Premix Bag 1 BAG IV SCH (03:43)
[2020-02-18] MEDS: Albuterol/Ipratropium 3.0-0.5 MG/3 ML Neb Soln NEB SCH ×3 (07:27→14:31)
[2020-02-18] MEDS: Insulin Lispro 100 Unit/ML 3 ML KwikPen SUBCUT SCH ×3 (08:09→17:26)
[2020-02-18] MEDS: metFORMIN 500 MG Tab PO SCH (08:09)
[2020-02-18] MEDS: buPROPion 150 MG Tab.SR PO SCH (08:36)
[2020-02-18] MEDS: Venlafaxine 75 MG Cap.ER PO SCH (08:36)
[2020-02-18] MEDS: Gabapentin 300 MG Cap PO SCH (08:36)
[2020-02-18] MEDS: Meloxicam 7.5 MG Tab PO SCH (08:36)
[2020-02-18] MEDS: Metoprolol Succinate 25 MG Tab.ER PO SCH (08:36)
[2020-02-18] MEDS ORDERED: Acetaminophen 650 MG Supp RECTAL PRN (09:17)
[2020-02-18] MEDS ORDERED: methylPREDNISolone Sodium Succinate 125 MG/2 ML SDV IVPUSH ONE (09:30)
[2020-02-18] MEDS ORDERED: Heparin Sodium 5,000 UNITS in Sodium Chloride 0.9% 500 ML IV SCH ×4 (09:30)
--- NOTE | 2020-02-18 09:32 | CR ---
CHEST: 2 view CLINICAL HISTORY:Hypoxia COMPARISON:None FINDINGS: Patient has moderate diffuse bilateral pulmonary infiltrates there are nodular perihilar densities bilaterally. Heart size is mildly enlarged. No effusion is seen IMPRESSION: Moderate diffuse bilateral pulmonary infiltrates Follow-up recommended until clear to exclude underlying lesion.
[2020-02-18] MEDS: propofoL 100 ML IV SCH ×2 (09:34→14:28)
[2020-02-18] MEDS: Meropenem 1 GM in Sodium Chloride 0.9% 100 ML IV SCH ×2 (09:35→17:29)
--- NOTE | 2020-02-18 09:45 | PCM.PN ---
- General Info Date of Service: 02/18/20 Subjective Update: Overnight the patient has had further decline despite using noninvasive ventilation. Her FiO2 requirements have increased to the point that she is needing 90% this morning. Blood gases do show mild CO2 retention. She says that her shortness of breath is mild. Respiratory rate is currently around 40. Not complaining of any chest pain. White blood cell count did decrease yesterday but has jumped to 21,000 today. Blood cultures are negative so far. Chest x-ray shows increasing bilateral infiltrates. With the significant tachypnea, increasing infiltrates and a component of declining mental status along with CO2 retention the patient was electively intubated this morning. Arterial line was placed. Functional Status: Reports: Pain Controlled - Review of Systems General: Denies: Fever Pulmonary: Reports: Shortness of Breath - Patient Data Vitals - Most Recent: Last Vital Signs Temp 36.6 C 02/18/20 08:00 Pulse 107 H 02/18/20 08:36 Resp 32 H 02/18/20 08:00 BP 144/79 H 02/18/20 08:36 Pulse Ox 97 02/18/20 08:00 Weight - Most Recent: 99.881 kg I&O - Last 24 Hours: Intake & Output 02/17/20 02/18/20 02/18/20 22:59 06:59 14:59 Intake Total 560 962 100 Output Total 400 600 Balance 160 362 100 Lab Results Last 24 Hours: Laboratory Results - last 24 hr 02/17/20 02/17/20 02/18/20 Range/Units 11:30 15:29 06:20 WBC (4.5-11.0) K/uL RBC (3.30-5.50) M/uL Hgb (12.0-15.0) g/dL Hct (36.0-48.0) % MCV (80-98) fL MCH (27-31) pg MCHC (32-36) % Plt Count (150-400) K/uL Neut % (Auto) (36-66) % Lymph % (Auto) (24-44) % Dickson % (Auto) (2-6) % Eos % (Auto) (2-4) % Baso % (Auto) (0-1) % Puncture Site Lt radial L brachial ABG pH 7.352 7.295 L (7.350-7.450) ABG pCO2 45.1 H 56.3 H (35.0-42.0) mmHg ABG pO2 131.0 H 63.6 L (75.0-100.0) mmHg ABG HCO3 24.4 26.6 H (22.0-26.0) mmol/L ABG Total CO2 23.0 25.5 H (21.0-25.0) mmol/L ABG O2 Saturation 98.6 H 88.3 L (95.0-98.0) % ABG O2 Content 13.3 L 11.4 L (15.0-23.0) %vol ABG Base Excess -0.7 0.1 mm/L ABG Hemoglobin 9.6 L 9.4 L (12.0-16.0) g/dL ABG Oxyhemoglobin 96.2 86.2 % ABG Carboxyhemoglobin 1.7 H 1.5 (0.0-1.6) % ABG Methemoglobin 0.7 0.9 % Laci Test Passed O2 Delivery Device Nasal cannula Ventilator Oxygen Flow Rate L Sodium (140-148) mmol/L Potassium (3.6-5.2) mmol/L Chloride (100-108) mmol/L Carbon Dioxide (21-32) mmol/L Anion Gap (5.0-14.0) mmol/L BUN (7-18) mg/dL Creatinine (0.6-1.0) mg/dL Est Cr Clr Drug Dosing mL/min Estimated GFR (MDRD) (>60) Glucose (74-106) mg/dL POC Glucose 188 H (74-106) MG/DL Calcium (8.5-10.1) mg/dL 02/18/20 02/18/20 Range/Units 06:25 06:25 WBC 21.0 H (4.5-11.0) K/uL RBC 3.27 L (3.30-5.50) M/uL Hgb 9.3 L (12.0-15.0) g/dL Hct 29.5 L (36.0-48.0) % MCV 90 (80-98) fL MCH 28 (27-31) pg MCHC 32 (32-36) % Plt Count 258 (150-400) K/uL Neut % (Auto) 88 H (36-66) % Lymph % (Auto) 6 L (24-44) % Dickson % (Auto) 7 H (2-6) % Eos % (Auto) 0 L (2-4) % Baso % (Auto) 0 (0-1) % Puncture Site ABG pH (7.350-7.450) ABG pCO2 (35.0-42.0) mmHg ABG pO2 (75.0-100.0) mmHg ABG HCO3 (22.0-26.0) mmol/L ABG Total CO2 (21.0-25.0) mmol/L ABG O2 Saturation (95.0-98.0) % ABG O2 Content (15.0-23.0) %vol ABG Base Excess mm/L ABG Hemoglobin (12.0-16.0) g/dL ABG Oxyhemoglobin % ABG Carboxyhemoglobin (0.0-1.6) % ABG Methemoglobin % Laci Test O2 Delivery Device Oxygen Flow Rate L Sodium 140 (140-148) mmol/L Potassium 4.3 (3.6-5.2) mmol/L Chloride 104 (100-108) mmol/L Carbon Dioxide 25 (21-32) mmol/L Anion Gap 10.9 (5.0-14.0) mmol/L BUN 11 D (7-18) mg/dL Creatinine 1.1 H (0.6-1.0) mg/dL Est Cr Clr Drug Dosing 57.28 mL/min Estimated GFR (MDRD) 53 L (>60) Glucose 149 H (74-106) mg/dL POC Glucose (74-106) MG/DL Calcium 9.3 (8.5-10.1) mg/dL Mehran Results Last 24 Hours: Microbiology 02/16/20 11:34 Aerobic Blood Culture - Preliminary Blood - Arm, Right NO GROWTH AFTER 1 DAY Anaerobic Blood Culture - Preliminary NO GROWTH AFTER 1 DAY 02/16/20 10:52 Aerobic Blood Culture - Preliminary Blood - Artery NO GROWTH AFTER 1 DAY Anaerobic Blood Culture - Preliminary NO GROWTH AFTER 1 DAY Med Orders - Current: Current Medications Acetaminophen (Tylenol) 650 mg PO Q4H PRN PRN Reason: Pain (Mild 1-3)/fever Acetaminophen (Tylenol) 650 mg RECTAL Q4H PRN PRN Reason: Fever Hydrocodone Bitart/Acetaminophen ([place] 325-7.5 Mg) 1 tab PO Q4H PRN PRN Reason: Pain (moderate 4-6) Last Admin: 02/17/20 18:04 Dose: 1 tab Documented by: Albuterol (Proventil Neb Soln) 2.5 mg NEB Q4H PRN PRN Reason: Shortness Of Breath/wheezing Last Admin: 02/16/20 21:08 Dose: 2.5 mg Documented by: Albuterol/Ipratropium (Duoneb 3.0-0.5 Mg/3 Ml) 3 ml NEB QIDRT [facility] Last Admin: 02/18/20 07:27 Dose: 3 ml Documented by: Bupropion HCl (Wellbutrin Sr) 150 mg PO BID [facility] Last Admin: 02/18/20 08:36 Dose: 150 mg Documented by: Dextrose (Glutose 15) 15 gm PO ONETIME PRN PRN Reason: Hypoglycemia Dextrose/Water (Dextrose 50% In Water) 50 ml IV ONETIME PRN PRN Reason: Hypoglycemia Enoxaparin Sodium (Lovenox) 40 mg SUBCUT Q24H [facility] Last Admin: 02/17/20 15:42 Dose: 40 mg Documented by: Gabapentin (Neurontin) 900 mg PO TID [facility] Last Admin: 02/18/20 08:36 Dose: 900 mg Documented by: Sodium Chloride (Normal Saline) 1,000 mls @ 50 mls/hr IV ASDIRECTED [facility] Last Admin: 02/17/20 15:55 Dose: 50 mls/hr Documented by: Levofloxacin/Dextrose 750 mg/ (Premix) 150 mls @ 100 mls/hr IV Q24H [facility] Last Admin: 02/17/20 14:42 Dose: 100 mls/hr Documented by: Propofol (Diprivan 100 Ml) 100 mls @ 2.996 mls/hr IV TITRATE [facility]; Protocol Last Titration: 02/18/20 09:40 Dose: 30 mcg/kg/min, 17.979 mls/hr Documented by: Meropenem 1 gm/ Sodium (Chloride) 100 mls @ 200 mls/hr IV Q8H [facility] Last Admin: 02/18/20 09:35 Dose: 200 mls/hr Documented by: Vancomycin HCl 1.5 gm/ Sodium (Chloride) 250 mls @ 167 mls/hr IV Q12H [facility] Heparin Sodium (Porcine) 5,000 (units/ Sodium Chloride) 501 mls @ 5 mls/hr IV ASDIRECTED [facility] Last Admin: 02/18/20 09:30 Dose: 5 mls/hr Documented by: Insulin Human Lispro (Humalog) 0 unit SUBCUT Q6H [facility]; Protocol Lorazepam (Ativan) 0.5 mg IVPUSH Q2H PRN PRN Reason: Anxiety Last Admin: 02/18/20 08:31 Dose: 0.5 mg Documented by: Meloxicam (Mobic) 15 mg PO DAILY [facility] Last Admin: 02/18/20 08:36 Dose: 15 mg Documented by: Metformin HCl (Glucophage) 1,000 mg PO BIDMEALS [facility] Last Admin: 02/18/20 08:09 Dose: Not Given Documented by: Metoprolol Succinate (Toprol Xl) 25 mg PO DAILY [facility] Last Admin: 02/18/20 08:36 Dose: 25 mg Documented by: Nicotine (Habitrol) 14 mg TRDERM Q24H [facility] Last Admin: 02/17/20 14:12 Dose: Not Given Documented by: Ondansetron HCl (Zofran) 4 mg IV Q4H PRN PRN Reason: Nausea/Vomiting Last Admin: 02/16/20 23:41 Dose: 4 mg Documented by: Polyethylene Glycol (Miralax) 17 gm PO DAILY PRN PRN Reason: Constipation Sodium Chloride (Saline Flush) 10 ml FLUSH ASDIRECTED PRN PRN Reason: Keep Vein Open Trazodone HCl (Trazodone) 150 mg PO BEDTIME [facility] Last Admin: 02/17/20 20:40 Dose: 150 mg Documented by: Venlafaxine HCl (Effexor Xr) 300 mg PO DAILY [facility] Last Admin: 02/18/20 08:36 Dose: 300 mg Documented by: Discontinued Medications Albuterol/Ipratropium (Duoneb 3.0-0.5 Mg/3 Ml) Confirm Administered Dose 3 ml .ROUTE .STK-MED ONE Stop: 02/17/20 11:47 Last Admin: 02/17/20 11:50 Dose: Not Given Documented by: Bupropion HCl (Wellbutrin Sr) 300 mg PO BID [facility] Last Admin: 02/17/20 08:50 Dose: 300 mg Documented by: Sodium Chloride (Normal Saline) 1,000 mls @ 999 mls/hr IV ASDIRECTED [facility] Last Admin: 02/16/20 08:52 Dose: 999 mls/hr Documented by: Doxycycline Hyclate 100 mg/ (Sodium Chloride) 100 mls @ 100 mls/hr IV Q12H [facility] Last Admin: 02/16/20 12:15 Dose: 100 mls/hr Documented by: Ceftriaxone Sodium 1 gm/ (Sodium Chloride) 50 mls @ 100 mls/hr IV Q24H [facility] Last Admin: 02/16/20 11:51 Dose: 100 mls/hr Documented by: Sodium Chloride (Normal Saline) 1,000 mls @ 125 mls/hr IV ASDIRECTED [facility] Last Admin: 02/17/20 06:09 Dose: 125 mls/hr Documented by: Ceftriaxone Sodium 1 gm/ (Sodium Chloride) 50 mls @ 100 mls/hr IV Q24H [facility] Last Admin: 02/17/20 11:27 Dose: 100 mls/hr Documented by: Doxycycline Hyclate 100 mg/ (Sodium Chloride) 100 mls @ 100 mls/hr IV Q12H [facility] Last Admin: 02/17/20 12:16 Dose: 100 mls/hr Documented by: Piperacillin/Tazobactam/ (Dextrose 3.375 gm/ Premix) 50 mls @ 100 mls/hr IV Q6H [facility] Last Admin: 02/18/20 03:43 Dose: 100 mls/hr Documented by: Insulin Human [facility]pro [facility]) [facility] Protocol Last Admin: 02/18/20 08:09 Dose: Not Given Documented by: Lorazepam (Ativan) 0.5 mg IVPUSH ONETIME ONE Stop: 02/17/20 15:26 Last Admin: 02/17/20 15:42 Dose: 0.5 mg Documented by: Methylprednisolone Sodium Succinate (Solu-Medrol) 125 mg IVPUSH ONETIME ONE Stop: 02/18/20 09:31 Nicotine Polacrilex (Nicorelief) 2 mg CHEW Q1H PRN PRN Reason: Other Ondansetron HCl (Zofran) 4 mg IVPUSH ONETIME ONE Stop: 02/16/20 08:45 Last Admin: 02/16/20 08:51 Dose: 4 mg Documented by: Potassium Chloride (Klor-Con M20) 40 meq PO ONETIME ONE Stop: 02/17/20 09:01 Last Admin: 02/17/20 08:56 Dose: 40 meq Documented by: Potassium Chloride (Klor-Con M20) 40 meq PO ONETIME ONE Stop: 02/17/20 14:01 Last Admin: 02/17/20 15:42 Dose: 40 meq Documented by: Venlafaxine HCl (Effexor Xr) 300 mg PO DAILY [facility] - Exam Quality Assessment: Supplemental Oxygen General: Alert, Oriented, Cooperative, Moderate Distress (increased work of breathing ) HEENT: Pupils Equal Neck: No JVD Lungs: Crackles (diffuse and bilateral ). No: Normal Respiratory Effort (tachypnea ) Cardiovascular: Regular Rhythm, Tachycardia GI/Abdominal Exam: Soft, No Distention Extremities: No Pedal Edema. No: Increased Warmth Peripheral Pulses: 2+: Dorsalis Pedis (L), Dorsalis Pedis (R) Skin: Warm, Dry Psy/Mental Status: Alert, Anxious Sepsis Event Note - Evaluation Sepsis Screening Result: Severe Sepsis Risk - Focused Exam Vital Signs: Vital Signs Temp Pulse Pulse Resp BP BP Pulse Ox 02/18/20 08:36 107 H 144/79 H 02/18/20 08:00 36.6 C 32 H 144/79 H 97 02/18/20 07:30 118 H 02/18/20 06:00 119 H 34 H 183/41 H 93 L 02/18/20 04:00 36.9 C 101 H 30 H 107/60 92 L 02/18/20 02:00 115 H 28 H 184/84 H 91 L 02/18/20 00:00 103 H 31 H 151/81 H 95 02/17/20 22:00 96 28 H 104/52 L 95 - Problem List Review Problem List Initiated/Reviewed/Updated: Yes - My Orders Last 24 Hours: My Active Orders 02/18/20 09:16 RASS Sedation Scale [RC] ASDIRECTED Desired Level of Sedation (RASS) [AST] Click to Edit 02/18/20 09:17 Acetaminophen [Tylenol] 650 mg RECTAL Q4H PRN 02/18/20 09:22 CRP [C-REACTIVE PROTEIN] [CHEM] Routine 02/18/20 09:23 CULTURE RESPIRATORY + SMEAR [RM] Routine 02/18/20 09:26 Mechanical Ventilation [RT Ventilator, Adult] [RC] ASDIRECTED CXR [Chest 1V Frontal] [CR] Routine 02/18/20 09:30 Heparin Sodium 5,000 units Sodium Chloride 0.9% [Normal Saline] 500 ml IV ASDIRECTED Propofol Drip @ 5 MCG/KG/MIN(100ml) propofoL [Diprivan 100 ML] 100 ml IV TITRATE 02/18/20 10:00 Meropenem [Merrem] 1 gm Sodium Chloride 0.9% [Normal Saline] 100 ml IV Q8H Vancomycin 1.5 gm Sodium Chloride 0.9% [Normal Saline] 250 ml IV Q12H 02/18/20 11:00 BLOOD GAS ARTERIAL [BG] Timed 02/18/20 12:00 Glucose [Blood Glucose Check, Bedside] [RC] Q6H NPO Now [Nothing per Oral Now Diet] [DIET] Insulin Lispro [HumaLOG] See Protocol SUBCUT Q6H 02/19/20 05:00 BASIC METABOLIC PANEL,BMP [CHEM] Timed BLOOD GAS ARTERIAL [BG] Timed CBC W/O DIFF,HEMOGRAM [HEME] Timed (1) MAGNESIUM [CHEM] Timed - Plan Plan:: ASSESSMENT AND PLAN BILATERAL [id number]-[id number] pneumonia, COVID negative. Worsening respiratory status since admission. Intubated this morning. Bilateral infiltrates have progressed significantly. Cultures negative so far. -Blood cultures pending -Continue levofloxacin and Pip/Tazo -Add vancomycin -CT of the chest ACUTE RESPIRATORY FAILURE WITH HYPOXIA AND HYPERCAPNIA-secondary to bilateral pneumonia with declining respiratory status despite noninvasive ventilation overnight. Moderate CO2 retention this morning. Worsening infiltrates on chest x-ray. -Supplemental oxygen as needed -Continuous pulse oximetry -Steroids TYPE 2 DIABETES MELLITUS-sugars well controlled. -Continue metformin -4 times daily glucometers -Low-dose sliding scale TOBACCO DEPENDENCE MAINTENANCE ISSUES -DVT prophylaxis; Lovenox 40 mg subcu daily -GI prophylaxis; not indicated -Romero catheter; not indicated -Nutrition; consistent carbohydrate diet DISPOSITION-anticipate discharge to home after the hospital stay. Vin Haas MD
[2020-02-18] MEDS: Albuterol 0.083% 2.5 MG/3 ML Neb Soln NEB PRN (09:52)
[2020-02-18] MEDS ORDERED: fentaNYL 100 MCG/2 ML SDV IVPUSH PRN (10:08)
[2020-02-18] MEDS ORDERED: Sodium Chloride 0.9% 1,000 ML IV SCH (10:15)
[2020-02-18] MEDS ORDERED: Sodium Chloride 0.9% 10 ML Syringe FLUSH ONE (10:22)
[2020-02-18] MEDS ORDERED: Iopamidol 755 Mg/ML 100 ML Bottle IV SCH (10:30)
[2020-02-18] MEDS ORDERED: Sodium Chloride 0.9% 100 ML IV SCH (10:30)
--- NOTE | 2020-02-18 11:10 | ANES ---
DATE OF SERVICE: 02/18/2020 TIME: 929. INDICATIONS: I was called to the ICU by Dr. Haas to evaluate Ms. Ulrich for intubation as well as an arterial line. Risks and benefits of procedure were explained to the patient. She wished to proceed with intubation and arterial line. TECHNIQUE: I did give her 200 mg of propofol along with 100 mg of succinylcholine. A MAC 3 was used and an 8.0 endotracheal tube was inserted and confirmed. She had bilateral breath sounds equally. This was then secured with Respiratory Therapy staff. I then put a 22- gauge right Arrow radial arterial line in. This was prepped with chlorhexidine. It had a good flash and good waveform. This was then sutured with 2-0 Prolene. Tegaderm and tape were used to secure. She had a good waveform and good blood return. Mark Villanueva CRNA /[id number]
--- NOTE | 2020-02-18 11:51 | CT ---
Ang Chest CLINICAL HISTORY: Respiratory failure TECHNIQUE: Thin section axial contiguous tomographic sections were taken through the chest after bolus IV iodinated contrast administration. Coronal and sagittal images were reconstructed. Auto dosage reduction and iterative reconstruction techniques employed. FINDINGS: There is moderate motion artifact. There are diffuse dense bilateral pulmonary alveolar infiltrates with minimal aerated lung. There are small bibasal effusions left greater than right. Patient is intubated. Endotracheal tube is 1.5 cm from the andrea. The heart is enlarged. Pulmonary outflow track and main pulmonary vessels show no evidence of emboli. Sensitivity for small branching vessels is reduced because of motion. There is no aortic aneurysm or dissection. There is hepatosplenomegaly. IMPRESSION: Limited study due to motion artifact Persistent diffuse dense pulmonary alveolar infiltrates bilaterally with small bibasal effusions No pulmonary emboli are seen Cardiomegaly Hepatosplenomegaly
--- NOTE | 2020-02-18 13:07 | CR ---
CHEST: Portable 02/18/2020 at 9:56 AM CLINICAL HISTORY:Intubation COMPARISON:02/16/2020 FINDINGS: Patient has been intubated. ET tube appears to be approximately 2 cm from the andrea. There are diffuse bilateral dense pulmonary infiltrates with virtual "whiteout". IMPRESSION: Endotracheal intubation. ET tube in good position Extremely dense bilateral pulmonary infiltrates
[2020-02-18] MEDS: Nicotine 14 MG/24 Hr Patch TRDERM SCH (13:34)
[2020-02-18] MEDS: Enoxaparin 40 MG/0.4 ML Syringe SUBCUT SCH (13:40)
[2020-02-18] MEDS: Levofloxacin/Dextrose 5%-Water 750 MG in Premix Bag 1 BAG IV SCH (13:40)
[2020-02-18] MEDS ORDERED: Azithromycin 500 MG in Sodium Chloride 0.9% 250 ML IV ONE (16:30)
--- NOTE | 2020-02-18 16:51 | PCM.DCSUM1 ---
Discharge Summary - Hospital Course Brief History: 50-year-old female with history of obesity with a BMI of 35, controlled type 2 diabetes mellitus and tobacco dependence who presented with progressive cough and shortness of breath. She was admitted for management of a bilateral pneumonia with acute respiratory failure with hypoxia. Diagnosis: Stroke: No - Discharge Data Discharge Date: 02/18/20 Discharge Disposition: DC/Tfer to [facility] 02 Condition: Critical - Referral to Home Health Primary Care Physician: PCP None - Discharge Diagnosis/Problem(s) (1) Bilateral pneumonia SNOMED Code(s): 090383329 ICD Code: J18.9 - PNEUMONIA, UNSPECIFIED ORGANISM Status: Acute Current Visit: Yes Qualifiers: Pneumonia type: due to unspecified organism Lung location: unspecified part of lung Qualified Code(s): J18.9 - Pneumonia, unspecified organism (2) Acute respiratory failure with hypoxia and hypercapnia SNOMED Code(s): 048003182 ICD Code: J96.01 - ACUTE RESPIRATORY FAILURE WITH HYPOXIA; J96.02 - ACUTE RESPIRATORY FAILURE WITH HYPERCAPNIA Status: Acute Current Visit: Yes (3) Tobacco dependence SNOMED Code(s): 60947269 ICD Code: F17.200 - NICOTINE DEPENDENCE, UNSPECIFIED, UNCOMPLICATED Status: Chronic Current Visit: Yes (4) Obesity (BMI 30-39.9) SNOMED Code(s): 485729618, 679270028 ICD Code: E66.9 - OBESITY, UNSPECIFIED Status: Chronic Current Visit: Yes (5) Type 2 diabetes mellitus SNOMED Code(s): 86827614 ICD Code: E11.9 - TYPE 2 DIABETES MELLITUS WITHOUT COMPLICATIONS Status: Chronic Current Visit: No Qualifiers: Diabetes mellitus 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 Work-up in the emergency room revealed leukocytosis with a white blood cell count of 18,000 as well as evidence for a bilateral pneumonia with moderate bilateral infiltrates noted. She also had mild hypokalemia. She was hypoxic. She was started on ceftriaxone and doxycycline and admitted to the hospital for further management. Over the next 24 hours she had a slow decline with increasing respiratory rate and increasing supplemental oxygen requirements. With the decline her antibiotic coverage was adjusted to include levofloxacin and Pip/Tazo with the other 2 antibiotics being discontinued. Her white blood cell count was slightly better the day after admission but clinically she was looking worse. Respiratory rate was increasing. As the day progressed she had a further increase in her respiratory rate. Arterial blood gases were obtained and showed very mild CO2 retention but acceptable oxygenation. She was transferred to the intensive care unit and started on noninvasive positive pressure ventilation. Overnight the second night of the hospital stay she had a further decline in her respiratory status despite the noninvasive ventilation. She had increasing FiO2 requirements. Her inspiratory and expiratory pressures were both increased as the night went on and despite this she had further decline. On the day of discharge her respiratory rate had increased to the 40s despite being on the noninvasive ventilation. Her arterial blood gases showed a rising PCO2 with a level in the mid 50s. She had mild acidosis with a pH of less than 7.3. Mental status had deteriorated some. We did elect to perform intubation and mechanical ventilation with her declining respiratory status. Chest x-ray obtained after the intubation showed a significant increase in the bilateral infiltrates. Once the patient had stabilized following intubation we will performed a CT pulmonary angiogram. There is no evidence for pulmonary embolism but there were extensive bilateral infiltrates noted involving essentially all of both of her lungs. We were able to obtain a respiratory sample which showed rare gram-positive cocci and some white blood cells. A culture was set up. Vancomycin was added to the antibiotic regimen. With her declining respiratory status extensive bilateral infiltrates I think she would benefit from a higher level of care. I believe that pulmonary critical care evaluation and likely a bronchoscopy would be extremely beneficial for her. Infectious disease consultation could be considered. There was no report of preceding infection and no one else in the home is sick. COVID19 testing was negative. Her case was discussed with Dr. Neri at [facility] in [place]. He was agreeable to receive her care and transfer. She did receive a dose of a azithromycin prior to transfer. Current ventilator settings are: FiO2 80%, RR 28, TV:420 and PEEP of 16. Given the severity of her respiratory illness the plan is for her to be transferred by air ambulance. I believe the benefits of transfer greatly outweigh the risks at this point and I think she has stable for transfer at this time. - Patient Instructions Diet: NPO Activity: Bedrest Other/Special Instructions: Transfer to [facility] in [place], Dr Neri accepting. Dx: Bilateral pneumonia with acute respiratory failure with hypoxia and hypercapnia - Discharge Plan *PRESCRIPTION DRUG MONITORING PROGRAM REVIEWED*: Not Applicable *COPY OF PRESCRIPTION DRUG MONITORING REPORT IN PATIENT REYNA: Not Applicable Home Medications: Home Meds Gabapentin [Neurontin] 900 mg PO TID 02/16/20 [History] Hydrocodone/Acetaminophen [Hydrocodon-Acetaminoph 7.5-325] 1 tab PO QID PRN 02/16/20 [History] Meloxicam 15 mg PO DAILY 02/16/20 [History] Venlafaxine HCl [Venlafaxine ER] 300 mg PO DAILY 02/16/20 [History] buPROPion [Wellbutrin SR] 150 mg PO BID 02/16/20 [History] metFORMIN [Glucophage] 1,000 mg PO BIDMEALS 02/16/20 [History] traZODone 150 mg PO BEDTIME 02/16/20 [History] Metoprolol Succinate [Toprol XL] 25 mg PO DAILY 02/17/20 [History] Oxygen Therapy Mode: Mechanical Ventilation Forms: ED Department Discharge Referrals: PCP,None [Primary Care Provider] - - Discharge Summary/Plan Comment DC Time >30 min.: Yes (60 - transfer to acute hospital ) - Patient Data Vitals - Most Recent: Last Vital Signs Temp 37.1 C 02/18/20 16:00 Pulse 90 02/18/20 14:31 Resp 24 H 02/18/20 16:00 BP 126/63 02/18/20 16:00 Pulse Ox 93 L 02/18/20 16:00 Weight - Most Recent: 99.881 kg I&O - Last 24 hours: Intake & Output 02/18/20 02/18/20 02/18/20 06:59 14:59 22:59 Intake Total 962 100 Output Total 600 700 Balance 362 -600 Lab Results - Last 24 hrs: Laboratory Results - last 24 hr 02/18/20 02/18/20 02/18/20 Range/Units 06:20 06:25 06:25 WBC 21.0 H (4.5-11.0) K/uL RBC 3.27 L (3.30-5.50) M/uL Hgb 9.3 L (12.0-15.0) g/dL Hct 29.5 L (36.0-48.0) % MCV 90 (80-98) fL MCH 28 (27-31) pg MCHC 32 (32-36) % Plt Count 258 (150-400) K/uL Neut % (Auto) 88 H (36-66) % Lymph % (Auto) 6 L (24-44) % Nolan % (Auto) 7 H (2-6) % Eos % (Auto) 0 L (2-4) % Baso % (Auto) 0 (0-1) % Puncture Site L brachial ABG pH 7.295 L (7.350-7.450) ABG pCO2 56.3 H (35.0-42.0) mmHg ABG pO2 63.6 L (75.0-100.0) mmHg ABG HCO3 26.6 H (22.0-26.0) mmol/L ABG Total CO2 25.5 H (21.0-25.0) mmol/L ABG O2 Saturation 88.3 L (95.0-98.0) % ABG O2 Content 11.4 L (15.0-23.0) %vol ABG Base Excess 0.1 mm/L ABG Hemoglobin 9.4 L (12.0-16.0) g/dL ABG Oxyhemoglobin 86.2 % ABG Carboxyhemoglobin 1.5 (0.0-1.6) % ABG Methemoglobin 0.9 % Laci Test O2 Delivery Device Ventilator Oxygen Flow Rate L Sodium 140 (140-148) mmol/L Potassium 4.3 (3.6-5.2) mmol/L Chloride 104 (100-108) mmol/L Carbon Dioxide 25 (21-32) mmol/L Anion Gap 10.9 (5.0-14.0) mmol/L BUN 11 D (7-18) mg/dL Creatinine 1.1 H (0.6-1.0) mg/dL Est Cr Clr Drug Dosing 57.28 mL/min Estimated GFR (MDRD) 53 L (>60) Glucose 149 H (74-106) mg/dL Calcium 9.3 (8.5-10.1) mg/dL C-Reactive Protein (0.0-0.3) mg/dL 02/18/20 02/18/20 02/18/20 Range/Units 06:25 11:50 15:00 WBC (4.5-11.0) K/uL RBC (3.30-5.50) M/uL Hgb (12.0-15.0) g/dL Hct (36.0-48.0) % MCV (80-98) fL MCH (27-31) pg MCHC (32-36) % Plt Count (150-400) K/uL Neut % (Auto) (36-66) % Lymph % (Auto) (24-44) % Nolan % (Auto) (2-6) % Eos % (Auto) (2-4) % Baso % (Auto) (0-1) % Puncture Site A-line A-line ABG pH 7.363 7.396 (7.350-7.450) ABG pCO2 46.1 H 42.5 H (35.0-42.0) mmHg ABG pO2 95.0 71.9 L (75.0-100.0) mmHg ABG HCO3 25.6 25.5 (22.0-26.0) mmol/L ABG Total CO2 24.6 24.2 (21.0-25.0) mmol/L ABG O2 Saturation 96.9 94.1 L (95.0-98.0) % ABG O2 Content 10.6 L 11.0 L (15.0-23.0) %vol ABG Base Excess 0.6 1.1 mm/L ABG Hemoglobin 8.0 L 8.4 L (12.0-16.0) g/dL ABG Oxyhemoglobin 93.4 91.6 % ABG Carboxyhemoglobin 1.7 H 1.7 H (0.0-1.6) % ABG Methemoglobin 1.9 1.0 % Laci Test A-line Not performed O2 Delivery Device Ventilator Ventilator Oxygen Flow Rate L Sodium (140-148) mmol/L Potassium (3.6-5.2) mmol/L Chloride (100-108) mmol/L Carbon Dioxide (21-32) mmol/L Anion Gap (5.0-14.0) mmol/L BUN (7-18) mg/dL Creatinine (0.6-1.0) mg/dL Est Cr Clr Drug Dosing mL/min Estimated GFR (MDRD) (>60) Glucose (74-106) mg/dL Calcium (8.5-10.1) mg/dL C-Reactive Protein 27.25 H (0.0-0.3) mg/dL 02/18/20 Range/Units 16:21 WBC (4.5-11.0) K/uL RBC (3.30-5.50) M/uL Hgb (12.0-15.0) g/dL Hct (36.0-48.0) % MCV (80-98) fL MCH (27-31) pg MCHC (32-36) % Plt Count (150-400) K/uL Neut % (Auto) (36-66) % Lymph % (Auto) (24-44) % Nolan % (Auto) (2-6) % Eos % (Auto) (2-4) % Baso % (Auto) (0-1) % Puncture Site A-line ABG pH 7.381 (7.350-7.450) ABG pCO2 44.7 H (35.0-42.0) mmHg ABG pO2 49.8 L (75.0-100.0) mmHg ABG HCO3 25.9 (22.0-26.0) mmol/L ABG Total CO2 24.7 (21.0-25.0) mmol/L ABG O2 Saturation 81.5 L (95.0-98.0) % ABG O2 Content 9.5 L (15.0-23.0) %vol ABG Base Excess 1.2 mm/L ABG Hemoglobin 8.5 L (12.0-16.0) g/dL ABG Oxyhemoglobin 79.8 % ABG Carboxyhemoglobin 1.4 (0.0-1.6) % ABG Methemoglobin 0.7 % Laci Test Not performed O2 Delivery Device Ventilator Oxygen Flow Rate L Sodium (140-148) mmol/L Potassium (3.6-5.2) mmol/L Chloride (100-108) mmol/L Carbon Dioxide (21-32) mmol/L Anion Gap (5.0-14.0) mmol/L BUN (7-18) mg/dL Creatinine (0.6-1.0) mg/dL Est Cr Clr Drug Dosing mL/min Estimated GFR (MDRD) (>60) Glucose (74-106) mg/dL Calcium (8.5-10.1) mg/dL C-Reactive Protein (0.0-0.3) mg/dL TREVOR Results - Last 24 hrs: Microbiology 02/16/20 11:34 Aerobic Blood Culture - Preliminary Blood - Arm, Right NO GROWTH AFTER 2 DAYS Anaerobic Blood Culture - Preliminary NO GROWTH AFTER 2 DAYS 02/16/20 10:52 Aerobic Blood Culture - Preliminary Blood - Artery NO GROWTH AFTER 2 DAYS Anaerobic Blood Culture - Preliminary NO GROWTH AFTER 2 DAYS 02/18/20 09:23 Gram Stain - Final Endotrachael Aspirate Med Orders - Current: Current Medications Acetaminophen (Tylenol) 650 mg PO Q4H PRN PRN Reason: Pain (Mild 1-3)/fever Acetaminophen (Tylenol) 650 mg RECTAL Q4H PRN PRN Reason: Fever Hydrocodone Bitart/Acetaminophen (Coggon 325-7.5 Mg) 1 tab PO Q4H PRN PRN Reason: Pain (moderate 4-6) Last Admin: 02/17/20 18:04 Dose: 1 tab Documented by: Albuterol (Proventil Neb Soln) 2.5 mg NEB Q4H PRN PRN Reason: Shortness Of Breath/wheezing Last Admin: 02/18/20 09:52 Dose: 2.5 mg Documented by: Albuterol/Ipratropium (Duoneb 3.0-0.5 Mg/3 Ml) 3 ml NEB QIDRT [facility] Last Admin: 02/18/20 14:31 Dose: 3 ml Documented by: Bupropion HCl (Wellbutrin Sr) 150 mg PO BID [facility] Last Admin: 02/18/20 08:36 Dose: 150 mg Documented by: Dextrose (Glutose 15) 15 gm PO ONETIME PRN PRN Reason: Hypoglycemia Dextrose/Water (Dextrose 50% In Water) 50 ml IV ONETIME PRN PRN Reason: Hypoglycemia Enoxaparin Sodium (Lovenox) 40 mg SUBCUT Q24H [facility] Last Admin: 02/18/20 13:40 Dose: 40 mg Documented by: Fentanyl (Sublimaze) 25 mcg IVPUSH Q1H PRN PRN Reason: Pain Gabapentin (Neurontin) 900 mg PO TID [facility] Last Admin: 02/18/20 08:36 Dose: 900 mg Documented by: Propofol (Diprivan 100 Ml) 100 mls @ 2.996 mls/hr IV TITRATE [facility]; Protocol Last Admin: 02/18/20 14:28 Dose: 30 mcg/kg/min, 17.979 mls/hr Documented by: Meropenem 1 gm/ Sodium (Chloride) 100 mls @ 200 mls/hr IV Q8H [facility] Last Admin: 02/18/20 09:35 Dose: 200 mls/hr Documented by: Vancomycin HCl 1.5 gm/ Sodium (Chloride) 250 mls @ 167 mls/hr IV Q12H [facility] Last Admin: 02/18/20 11:23 Dose: 167 mls/hr Documented by: Heparin Sodium (Porcine) 5,000 (units/ Sodium Chloride) 501 mls @ 5 mls/hr IV ASDIRECTED [facility] Last Admin: 02/18/20 09:30 Dose: 5 mls/hr Documented by: Sodium Chloride (Normal Saline) 1,000 mls @ 25 mls/hr IV ASDIRECTED [facility] Azithromycin 500 mg/ Sodium (Chloride) 250 mls @ 250 mls/hr IV ONETIME ONE Stop: 02/18/20 17:29 Last Admin: 02/18/20 16:17 Dose: 250 mls/hr Documented by: Insulin Human Lispro (Humalog) 0 unit SUBCUT Q6H [facility]; Protocol Last Admin: 02/18/20 11:30 Dose: Not Given Documented by: Lorazepam (Ativan) 0.5 mg IVPUSH Q2H PRN PRN Reason: Anxiety Last Admin: 02/18/20 08:31 Dose: 0.5 mg Documented by: Meloxicam (Mobic) 15 mg PO DAILY [facility] Last Admin: 02/18/20 08:36 Dose: 15 mg Documented by: Metformin HCl (Glucophage) 1,000 mg PO BIDMEALS [facility] Last Admin: 02/18/20 08:09 Dose: Not Given Documented by: Methylprednisolone Sodium Succinate (Solu-Medrol) 62.5 mg IVPUSH Q8H [facility] Metoprolol Succinate (Toprol Xl) 25 mg PO DAILY [facility] Last Admin: 02/18/20 08:36 Dose: 25 mg Documented by: Nicotine (Habitrol) 14 mg TRDERM Q24H [facility] Last Admin: 02/18/20 13:34 Dose: Not Given Documented by: Ondansetron HCl (Zofran) 4 mg IV Q4H PRN PRN Reason: Nausea/Vomiting Last Admin: 02/16/20 23:41 Dose: 4 mg Documented by: Polyethylene Glycol (Miralax) 17 gm PO DAILY PRN PRN Reason: Constipation Sodium Chloride (Saline Flush) 10 ml FLUSH ASDIRECTED PRN PRN Reason: Keep Vein Open Trazodone HCl (Trazodone) 150 mg PO BEDTIME [facility] Last Admin: 02/17/20 20:40 Dose: 150 mg Documented by: Venlafaxine HCl (Effexor Xr) 300 mg PO DAILY [facility] Last Admin: 02/18/20 08:36 Dose: 300 mg Documented by: Discontinued Medications Albuterol/Ipratropium (Duoneb 3.0-0.5 Mg/3 Ml) Confirm Administered Dose [address] Stop: 02/17/20 11:47 Last Admin: 02/17/20 11:50 Dose: Not Given Documented by: Bupropion HCl (Wellbutrin Sr) 300 mg PO BID [facility] Last Admin: 02/17/20 08:50 Dose: 300 mg Documented by: Sodium Chloride (Normal Saline) 1,000 mls @ 999 mls/hr IV ASDIRECTED [facility] Last Admin: 02/16/20 08:52 Dose: 999 mls/hr Documented by: Doxycycline Hyclate 100 mg/ (Sodium Chloride) 100 mls @ 100 mls/hr IV Q12H [facility] Last Admin: 02/16/20 12:15 Dose: 100 mls/hr Documented by: Ceftriaxone Sodium 1 gm/ (Sodium Chloride) 50 mls @ 100 mls/hr IV Q24H [facility] Last Admin: 02/16/20 11:51 Dose: 100 mls/hr Documented by: Sodium Chloride (Normal Saline) 1,000 mls @ 125 mls/hr IV ASDIRECTED [facility] Last Admin: 02/17/20 06:09 Dose: 125 mls/hr Documented by: Ceftriaxone Sodium 1 gm/ (Sodium Chloride) 50 mls @ 100 mls/hr IV Q24H [facility] Last Admin: 02/17/20 11:27 Dose: 100 mls/hr Documented by: Doxycycline Hyclate 100 mg/ (Sodium Chloride) 100 mls @ 100 mls/hr IV Q12H [facility] Last Admin: 02/17/20 12:16 Dose: 100 mls/hr Documented by: Sodium Chloride (Normal Saline) 1,000 mls @ 50 mls/hr IV ASDIRECTED [facility] Last Admin: 02/17/20 15:55 Dose: 50 mls/hr Documented by: Piperacillin/Tazobactam/ (Dextrose 3.375 gm/ Premix) 50 mls @ 100 mls/hr IV Q6H [facility] Last Admin: 02/18/20 03:43 Dose: 100 mls/hr Documented by: Levofloxacin/Dextrose 750 mg/ (Premix) 150 mls @ 100 mls/hr IV Q24H [facility] Last Admin: 02/18/20 13:40 Dose: 100 mls/hr Documented by: Sodium Chloride (Normal Saline) 100 mls @ 3 mls/sec IV ASDIRECTED [facility] Stop: 02/18/20 12:00 Last Admin: 02/18/20 11:12 Dose: 3 mls/sec Documented by: Insulin Human Lispro (Humalog) 0 unit SUBCUT QIDACANDBED [facility]; Protocol Last Admin: 02/18/20 08:09 Dose: Not Given Documented by: Iopamidol (Isovue-370 (76%)) 100 ml IV . DIRECTED [facility] Stop: 02/18/20 12:00 Last Admin: 02/18/20 11:12 Dose: 100 ml Documented by: Lorazepam (Ativan) 0.5 mg IVPUSH ONETIME ONE Stop: 02/17/20 15:26 Last Admin: 02/17/20 15:42 Dose: 0.5 mg Documented by: Methylprednisolone Sodium Succinate (Solu-Medrol) 125 mg IVPUSH ONETIME ONE Stop: 02/18/20 09:31 Last Admin: 02/18/20 10:28 Dose: 125 mg Documented by: Nicotine Polacrilex (Nicorelief) 2 mg CHEW Q1H PRN PRN Reason: Other Ondansetron HCl (Zofran) 4 mg IVPUSH ONETIME ONE Stop: 02/16/20 08:45 Last Admin: 02/16/20 08:51 Dose: 4 mg Documented by: Potassium Chloride (Klor-Con M20) 40 meq PO ONETIME ONE Stop: 02/17/20 09:01 Last Admin: 02/17/20 08:56 Dose: 40 meq Documented by: Potassium Chloride (Klor-Con M20) 40 meq PO ONETIME ONE Stop: 02/17/20 14:01 Last Admin: 02/17/20 15:42 Dose: 40 meq Documented by: Sodium Chloride (Saline Flush) 10 ml FLUSH ONETIME ONE Stop: 02/18/20 10:23 Last Admin: 02/18/20 11:13 Dose: 10 ml Documented by: Venlafaxine HCl (Effexor Xr) 300 mg PO DAILY [facility]
[2020-02-18] MEDS ORDERED: methylPREDNISolone Sodium Succinate 125 MG/2 ML SDV IVPUSH SCH (22:00)
== END 2020-02-18 19:19 | DRG 208 ==
LOC: JP.ED 08:12 → JP.MS 11:22 → JP.ICU 02-17 14:24
PROVIDERS: ADMIT Hospitalist; ATTEND Internal Medicine
PROC: 5A09457 Assistance with Respiratory Ventilation, 24-96 Consecutive Hours, Continuous Positive Airway Pressure (ICD-10-PCS; 2020-02-16)
PROC: 5A1935Z Respiratory Ventilation, Less than 24 Consecutive Hours (ICD-10-PCS; principal; 2020-02-18)
PROC: 0BH17EZ Insertion of Endotracheal Airway into Trachea, Via Natural or Artificial Opening (ICD-10-PCS; 2020-02-18)
DX: J18.9 Pneumonia, unspecified organism (principal); J96.01 Acute respiratory failure with hypoxia; J96.02 Acute respiratory failure with hypercapnia; E87.2 Acidosis; E66.9 Obesity, unspecified; F17.210 Nicotine dependence, cigarettes, uncomplicated; E11.42 Type 2 diabetes mellitus with diabetic polyneuropathy; Z20.828 Contact with and (suspected) exposure to other viral communicable diseases; H54.7 Unspecified visual loss; I10 Essential (primary) hypertension; Z68.35 Body mass index [BMI] 35.0-35.9, adult; Z79.84 Long term (current) use of oral hypoglycemic drugs; Z79.899 Other long term (current) drug therapy; Z90.49 Acquired absence of other specified parts of digestive tract
CPT/HCPCS: 36415; 36600; 51702; 71045; 71045-26; 71046; 71046-26; 71275; 71275-26; 80048; 80053; 81001; 82803; 82962; 83735; 83880; 85025; 86140; 87040; 87070; 87077; 87205; 94002; 94640; 94660; 94762; 96361; 96365; 96375; 99222-AI; 99239; 99285-25; 99291; A9270-GY; J0456; J0696; J1644; J1650; J1815; J1956; J2060; J2185; J2405; J2543; J2704; J2930; J3370; J3490; J7030; J7040; J7050; J7620-GY; Q9967; U0002

== ENCOUNTER 2021-08-03 11:05 | Emergency (ER) | payer MEDICAID ==
[2021-08-03] MEDS ORDERED: Morphine 4 MG/ML Syringe IVPUSH PRN (11:15)
[2021-08-03] MEDS ORDERED: Sodium Chloride 0.9% 10 ML Syringe FLUSH PRN (11:15)
[2021-08-03] MEDS ORDERED: Aspirin 81 MG Tab.Chew PO ONE (11:15)
[2021-08-03] MEDS ORDERED: Nitroglycerin 0.4 MG Tab.SL SL PRN (11:15)
[2021-08-03] MEDS ORDERED: Ondansetron 4 MG/2 ML SDV IVPUSH ONE (11:41)
[2021-08-03] MEDS ORDERED: Morphine 2 MG/ML SYRINGE IVPUSH ONE (12:00)
[2021-08-03] MEDS ORDERED: Heparin Sodium 5,000 Units/ML Vial IVPUSH ONE (12:17)
[2021-08-03] MEDS ORDERED: Metoprolol Tartrate 25 MG Tab PO ONE (12:18)
[2021-08-03] MEDS ORDERED: Rosuvastatin 10 MG Tab PO ONE (12:19)
[2021-08-03] MEDS ORDERED: Nitroglycerin/D5W 25 MG/250 ML BOTTLE IV SCH (12:30)
[2021-08-03] MEDS ORDERED: Heparin Sodium/D5W 25,000 UNITS/500 ML BAG IV SCH (12:30)
== END 2021-08-03 14:00 ==
LOC: JP.ED 11:05
DX: I21.4 Non-ST elevation (NSTEMI) myocardial infarction (principal); I10 Essential (primary) hypertension; E11.9 Type 2 diabetes mellitus without complications; Z88.1 Allergy status to other antibiotic agents; Z79.84 Long term (current) use of oral hypoglycemic drugs
CPT/HCPCS: 36415; 71045; 80053; 84484; 85025; 85610; 85730; 93005; 93010; 96365; 96368; 96375; 96376; 99283; 99285-25; A9270-GY; J1644; J2270; J2405; J3490

== ENCOUNTER 2021-09-16 14:39 | Emergency (ER) | payer MEDICAID ==
[2021-09-16] MEDS ORDERED: fentaNYL 100 MCG/2 ML SDV IM ONE (14:59)
== END 2021-09-16 16:27 | disposition home or self-care (01) ==
LOC: JP.ED 14:39
DX: S42.295A Other nondisplaced fracture of upper end of left humerus, initial encounter for closed fracture (principal); I25.10 Atherosclerotic heart disease of native coronary artery without angina pectoris; I10 Essential (primary) hypertension; I25.2 Old myocardial infarction; E11.9 Type 2 diabetes mellitus without complications; Z86.73 Personal history of transient ischemic attack (TIA), and cerebral infarction without residual deficits; Z79.84 Long term (current) use of oral hypoglycemic drugs; Z88.0 Allergy status to penicillin; Z88.1 Allergy status to other antibiotic agents; Z87.891 Personal history of nicotine dependence; W26.8XXA Contact with other sharp object(s), not elsewhere classified, initial encounter
CPT/HCPCS: 70450; 70450-26; 73030-26-LT; 73030-LT; 96372; 99282; 99284-25; J3010

== ENCOUNTER 2021-09-21 18:55 | Emergency (ER) | payer MEDICAID | END 2021-09-21 20:54 | disposition home or self-care (01) | LOC: JP.ED 18:55 | DX: S42.255A Nondisplaced fracture of greater tuberosity of left humerus, initial encounter for closed fracture (principal); S50.02XA Contusion of left elbow, initial encounter; S09.90XA Unspecified injury of head, initial encounter; M54.50 Low back pain, unspecified; G89.29 Other chronic pain; I25.10 Atherosclerotic heart disease of native coronary artery without angina pectoris; I25.2 Old myocardial infarction; I10 Essential (primary) hypertension; E11.9 Type 2 diabetes mellitus without complications; Z86.73 Personal history of transient ischemic attack (TIA), and cerebral infarction without residual deficits; Z90.49 Acquired absence of other specified parts of digestive tract; Z88.0 Allergy status to penicillin; Z88.1 Allergy status to other antibiotic agents; Z79.899 Other long term (current) drug therapy; Z79.84 Long term (current) use of oral hypoglycemic drugs; Z79.82 Long term (current) use of aspirin; W01.10XA Fall on same level from slipping, tripping and stumbling with subsequent striking against unspecified object, initial encounter | CPT/HCPCS: 70450; 73030-26-LT; 73030-LT; 73080-26-LT; 73080-LT; 99282; 99284 ==

== ENCOUNTER 2022-07-12 19:09 | Emergency (ER) | payer MEDICAID | END 2022-07-12 20:21 | disposition home or self-care (01) | LOC: JP.ED 19:09 | DX: S60.222A Contusion of left hand, initial encounter (principal); I25.10 Atherosclerotic heart disease of native coronary artery without angina pectoris; I10 Essential (primary) hypertension; E11.9 Type 2 diabetes mellitus without complications; I25.2 Old myocardial infarction; Z86.73 Personal history of transient ischemic attack (TIA), and cerebral infarction without residual deficits; Z88.0 Allergy status to penicillin; Z88.1 Allergy status to other antibiotic agents; Z79.82 Long term (current) use of aspirin; Z79.02 Long term (current) use of antithrombotics/antiplatelets; Z79.899 Other long term (current) drug therapy; Z79.01 Long term (current) use of anticoagulants | CPT/HCPCS: 73130-26-LT; 73130-LT; 99283 ==

== ENCOUNTER 2022-08-01 17:40 | Inpatient (IN) | payer MEDICAID ==
[2022-08-01] MEDS ORDERED: Sodium Chloride 0.9% 10 ML Syringe FLUSH PRN (18:12)
[2022-08-01] MEDS ORDERED: Lactated Ringers 1,000 ML IV SCH ×2 (18:15→19:45)
[2022-08-01 18:52] LABS: ESTIMATED GFR 39 mL/min (>60)
[2022-08-01 19:08] LABS: CORONAVIRUS COVID-19 NAA NEGATIVE (NEGATIVE)
[2022-08-01] MEDS ORDERED: Potassium Chloride 20 MEQ Tab.ER PO ONE (19:08)
[2022-08-01] MEDS ORDERED: Potassium Chloride 10 MEQ in Premix Bag 1 BAG IV ONE (19:08)
[2022-08-01] MEDS ORDERED: Insulin Regular, Human 100 Units/ML 3 ML Vial IVPUSH ONE (19:10)
[2022-08-01] MEDS ORDERED: Glucagon,Human Recombinant 1 MG Vial IM PRN (19:10)
[2022-08-01] MEDS ORDERED: 50% Dextrose in Water 50 ML Syringe IVPUSH PRN (19:10)
[2022-08-01] MEDS ORDERED: Ondansetron 4 MG Tab.DIS PO PRN (21:19)
[2022-08-01] MEDS ORDERED: Acetaminophen 325 MG Tab PO PRN (21:19)
[2022-08-01] MEDS ORDERED: Melatonin 3 MG Tab PO PRN (21:19)
[2022-08-01] MEDS ORDERED: Ondansetron 4 MG/2 ML SDV IV PRN (21:19)
[2022-08-01] MEDS ORDERED: Metoprolol Succinate 25 MG Tab.ER PO SCH (21:34)
[2022-08-01] MEDS ORDERED: Insulin Lispro 100 Unit/ML 3 ML KwikPen SUBCUT SCH (22:30)
[2022-08-01] MEDS: Lactated Ringers 1,000 ML IV SCH (22:35)
[2022-08-01] MEDS: Potassium Chloride 10 MEQ in Premix Bag 1 BAG IV SCH (22:36)
[2022-08-01] MEDS: DULoxetine 30 MG Cap PO SCH (22:36)
[2022-08-01] MEDS: Pantoprazole 40 MG Tab.CR PO SCH (22:36)
[2022-08-01] MEDS: Ticagrelor 90 MG Tab PO SCH (22:36)
[2022-08-01] MEDS: Pregabalin 75 MG Cap PO SCH (22:37)
[2022-08-02] MEDS: Potassium Chloride 10 MEQ in Premix Bag 1 BAG IV SCH ×7 (00:02→09:46)
[2022-08-02] MEDS ORDERED: Potassium Chloride 20 MEQ Tab.ER PO ONE ×4 (05:25→22:00)
[2022-08-02] MEDS ORDERED: Potassium Chloride 10 MEQ in Premix Bag 4 BAG IV SCH (06:00)
[2022-08-02] MEDS: Lactated Ringers 1,000 ML IV SCH (07:13)
[2022-08-02] MEDS: Aspirin 81 MG Tab.Chew PO SCH (08:25)
[2022-08-02] MEDS: Ticagrelor 90 MG Tab PO SCH ×2 (08:26→20:07)
[2022-08-02] MEDS: buPROPion 150 MG Tab.SR PO SCH (08:26)
[2022-08-02] MEDS: ARIPiprazole 10 MG Tab PO SCH (08:26)
[2022-08-02] MEDS: Ezetimibe 10 MG Tab PO SCH (08:26)
[2022-08-02] MEDS: DULoxetine 30 MG Cap PO SCH ×2 (08:26→20:05)
[2022-08-02] MEDS: Lisinopril 2.5 MG Tab PO SCH (08:27)
[2022-08-02] MEDS: Pantoprazole 40 MG Tab.CR PO SCH (08:34)
[2022-08-02] MEDS: Pregabalin 75 MG Cap PO SCH ×2 (08:34→20:12)
[2022-08-02] MEDS: Insulin Lispro 100 Unit/ML 3 ML KwikPen SUBCUT SCH ×4 (08:35→21:14)
[2022-08-02] MEDS ORDERED: Nortriptyline 10 MG Cap PO SCH (21:00)
[2022-08-02] MEDS ORDERED: buPROPion 150 MG Tab.SR PO SCH (21:00)
[2022-08-02] MEDS ORDERED: Metoprolol Succinate 50 MG Tab.ER PO SCH (21:00)
[2022-08-02] MEDS ORDERED: traZODone 50 MG Tab PO SCH (21:00)
[2022-08-03] MEDS: Pantoprazole 40 MG Tab.CR PO SCH (07:33)
[2022-08-03] MEDS: Insulin Lispro 100 Unit/ML 3 ML KwikPen SUBCUT SCH ×2 (07:55→11:40)
[2022-08-03] MEDS: Ticagrelor 90 MG Tab PO SCH (08:39)
[2022-08-03] MEDS: Pregabalin 75 MG Cap PO SCH (08:39)
[2022-08-03] MEDS: DULoxetine 30 MG Cap PO SCH (08:39)
[2022-08-03] MEDS: ARIPiprazole 10 MG Tab PO SCH (08:40)
[2022-08-03] MEDS: Aspirin 81 MG Tab.Chew PO SCH (08:40)
[2022-08-03] MEDS: Ezetimibe 10 MG Tab PO SCH (08:41)
[2022-08-03] MEDS: buPROPion 150 MG Tab.SR PO SCH (08:41)
[2022-08-03] MEDS: Lisinopril 2.5 MG Tab PO SCH (09:04)
[2022-08-03] MEDS ORDERED: Pregabalin 50 MG Cap PO SCH (21:00)
[2022-08-03] MEDS ORDERED: Pregabalin 100 MG Cap PO SCH (21:00)
== END 2022-08-03 11:53 | disposition home or self-care (01) | DRG 683 ==
LOC: JP.ED 17:40 → JP.MS 20:23
PROVIDERS: ADMIT Hospitalist; ATTEND Hospitalist
DX: N17.9 Acute kidney failure, unspecified (principal); I50.42 Chronic combined systolic (congestive) and diastolic (congestive) heart failure; K52.9 Noninfective gastroenteritis and colitis, unspecified; E87.6 Hypokalemia; E86.0 Dehydration; E11.65 Type 2 diabetes mellitus with hyperglycemia; N18.30 Chronic kidney disease, stage 3 unspecified; E11.22 Type 2 diabetes mellitus with diabetic chronic kidney disease; Z20.822 Contact with and (suspected) exposure to COVID-19; M79.7 Fibromyalgia; G47.30 Sleep apnea, unspecified; F41.9 Anxiety disorder, unspecified; M19.90 Unspecified osteoarthritis, unspecified site; E66.9 Obesity, unspecified; F43.10 Post-traumatic stress disorder, unspecified; I25.10 Atherosclerotic heart disease of native coronary artery without angina pectoris; F32.9 Major depressive disorder, single episode, unspecified; I25.2 Old myocardial infarction; Z86.73 Personal history of transient ischemic attack (TIA), and cerebral infarction without residual deficits; Z79.82 Long term (current) use of aspirin; Z79.899 Other long term (current) drug therapy; Z88.0 Allergy status to penicillin; Z88.8 Allergy status to other drugs, medicaments and biological substances; Z98.890 Other specified postprocedural states; Z90.49 Acquired absence of other specified parts of digestive tract; Z87.891 Personal history of nicotine dependence
CPT/HCPCS: 0241U; 36415; 80048; 80053; 81001; 82947; 83605; 83735; 84132; 85025; 85027; 87493; 96361; 96365; 99222; 99232; 99238; 99284; 99285-25; A9270-GY; J1815; J1815-GY; J3480; J3490; J7120

== ENCOUNTER 2022-08-06 16:27 | Inpatient (IN) | payer MEDICAID ==
[2022-08-06] MEDS ORDERED: Sodium Chloride 0.9% 10 ML Syringe FLUSH PRN ×2 (16:36→19:52)
[2022-08-06] MEDS ORDERED: Furosemide 40 MG/4 ML VIAL IVPUSH ONE (17:08)
[2022-08-06 17:15] LABS: ESTIMATED GFR 39 mL/min (>60)
[2022-08-06 17:26] LABS: CORONAVIRUS COVID-19 NAA NEGATIVE (NEGATIVE)
[2022-08-06 17:28] LABS: TROPONIN I HIGH SENSITIVITY 14.9 pg/mL (<=60.3)
[2022-08-06] MEDS ORDERED: Docusate Sodium 100 MG Cap PO PRN (19:52)
[2022-08-06] MEDS ORDERED: Ondansetron 4 MG Tab.DIS PO PRN (19:52)
[2022-08-06] MEDS ORDERED: Polyethylene Glycol 3350 Powder 17 GM Packet PO PRN (19:52)
[2022-08-06] MEDS ORDERED: Bisacodyl 5 MG Tab PO PRN (19:52)
[2022-08-06] MEDS ORDERED: Ondansetron 4 MG/2 ML SDV IV PRN (19:52)
[2022-08-06] MEDS ORDERED: tiZANidine 2 MG Tab PO PRN (19:52)
[2022-08-06] MEDS ORDERED: Melatonin 3 MG Tab PO PRN (19:52)
[2022-08-06] MEDS ORDERED: Morphine 2 MG/ML SYRINGE IVPUSH PRN (19:52)
[2022-08-06] MEDS ORDERED: Albuterol 0.083% 2.5 MG/3 ML Neb Soln NEB PRN (19:52)
[2022-08-06] MEDS ORDERED: LORazepam 2 MG/ML SDV IV PRN (19:52)
[2022-08-06] MEDS ORDERED: Albuterol/Ipratropium 3.0-0.5 MG/3 ML Neb Soln NEB PRN (19:52)
[2022-08-06] MEDS: Insulin Lispro 100 Unit/ML 3 ML KwikPen SUBCUT SCH (21:12)
[2022-08-06] MEDS: Nortriptyline 10 MG Cap PO SCH (21:28)
[2022-08-06] MEDS: Ticagrelor 90 MG Tab PO SCH (21:28)
[2022-08-06] MEDS: Pregabalin 75 MG Cap PO SCH (21:36)
[2022-08-06] MEDS: hydrOXYzine HCl 25 MG Tab PO SCH (21:36)
[2022-08-06] MEDS: traZODone 50 MG Tab PO SCH (21:37)
[2022-08-06] MEDS: buPROPion 150 MG Tab.SR PO SCH (21:37)
[2022-08-06] MEDS: DULoxetine 30 MG Cap PO SCH (21:37)
[2022-08-06] MEDS: Metoprolol Succinate 50 MG Tab.ER PO SCH (21:38)
[2022-08-06] MEDS: oxyCODONE 5 MG Tab PO PRN (21:44)
[2022-08-07] MEDS: Insulin Lispro 100 Unit/ML 3 ML KwikPen SUBCUT SCH ×2 (07:35→11:53)
[2022-08-07] MEDS: Pantoprazole 40 MG Tab.CR PO SCH (07:48)
[2022-08-07] MEDS: oxyCODONE 5 MG Tab PO PRN (07:48)
[2022-08-07] MEDS: Ticagrelor 90 MG Tab PO SCH ×2 (08:36→20:44)
[2022-08-07] MEDS: ARIPiprazole 10 MG Tab PO SCH (08:36)
[2022-08-07] MEDS: hydrOXYzine HCl 25 MG Tab PO SCH ×2 (08:36→20:46)
[2022-08-07] MEDS: DULoxetine 30 MG Cap PO SCH ×2 (08:36→20:44)
[2022-08-07] MEDS: Lisinopril 2.5 MG Tab PO SCH ×2 (08:37→11:05)
[2022-08-07] MEDS: Aspirin 81 MG Tab.EC PO SCH (08:37)
[2022-08-07] MEDS: buPROPion 150 MG Tab.SR PO SCH ×2 (08:41→20:45)
[2022-08-07] MEDS: Ezetimibe 10 MG Tab PO SCH (08:41)
[2022-08-07] MEDS: Pregabalin 75 MG Cap PO SCH ×2 (08:45→20:50)
[2022-08-07] MEDS ORDERED: Sodium Chloride 0.9% 500 ML IV SCH (13:30)
[2022-08-07] MEDS ORDERED: Doxycycline 100 MG in Sodium Chloride 0.9% 100 ML IV ONE (14:00)
[2022-08-07] MEDS: atorvaSTATin 20 MG Tab PO SCH (17:38)
[2022-08-07] MEDS: traZODone 50 MG Tab PO SCH (20:45)
[2022-08-07] MEDS: Nortriptyline 10 MG Cap PO SCH (20:46)
[2022-08-07] MEDS: Lactobacillus Rhamnosus GG (Probiotic) Cap PO SCH (20:47)
[2022-08-07] MEDS: Metoprolol Succinate 50 MG Tab.ER PO SCH (20:48)
[2022-08-07] MEDS: Doxycycline 100 MG Cap PO SCH (21:21)
[2022-08-08] MEDS: Pantoprazole 40 MG Tab.CR PO SCH (07:42)
[2022-08-08] MEDS: Pregabalin 75 MG Cap PO SCH ×2 (08:51→20:16)
[2022-08-08] MEDS: Ticagrelor 90 MG Tab PO SCH ×2 (08:52→20:07)
[2022-08-08] MEDS: ARIPiprazole 10 MG Tab PO SCH (08:52)
[2022-08-08] MEDS: Lactobacillus Rhamnosus GG (Probiotic) Cap PO SCH ×2 (08:53→20:07)
[2022-08-08] MEDS: Aspirin 81 MG Tab.EC PO SCH (08:53)
[2022-08-08] MEDS: DULoxetine 30 MG Cap PO SCH ×2 (08:53→20:07)
[2022-08-08] MEDS: hydrOXYzine HCl 25 MG Tab PO SCH ×2 (08:54→20:07)
[2022-08-08] MEDS: Ezetimibe 10 MG Tab PO SCH (08:54)
[2022-08-08] MEDS: buPROPion 150 MG Tab.SR PO SCH ×2 (08:55→20:09)
[2022-08-08] MEDS: Doxycycline 100 MG Cap PO SCH ×2 (10:33→21:33)
[2022-08-08] MEDS: Metoprolol Succinate 50 MG Tab.ER PO SCH (10:33)
[2022-08-08] MEDS: atorvaSTATin 20 MG Tab PO SCH (18:42)
[2022-08-08] MEDS: Acetaminophen 325 MG Tab PO PRN ×2 (18:47→23:45)
[2022-08-08] MEDS: Nortriptyline 10 MG Cap PO SCH (20:08)
[2022-08-08] MEDS: traZODone 50 MG Tab PO SCH (20:09)
[2022-08-09] MEDS: Pantoprazole 40 MG Tab.CR PO SCH (08:44)
[2022-08-09] MEDS: Lactobacillus Rhamnosus GG (Probiotic) Cap PO SCH ×2 (08:44→21:01)
[2022-08-09] MEDS: Ticagrelor 90 MG Tab PO SCH ×2 (08:45→21:01)
[2022-08-09] MEDS: Aspirin 81 MG Tab.EC PO SCH (08:46)
[2022-08-09] MEDS: hydrOXYzine HCl 25 MG Tab PO SCH ×2 (08:46→21:01)
[2022-08-09] MEDS: DULoxetine 30 MG Cap PO SCH ×2 (08:46→21:01)
[2022-08-09] MEDS: Metoprolol Succinate 50 MG Tab.ER PO SCH (08:47)
[2022-08-09] MEDS: buPROPion 150 MG Tab.SR PO SCH ×2 (08:51→21:02)
[2022-08-09] MEDS: ARIPiprazole 10 MG Tab PO SCH (08:51)
[2022-08-09] MEDS: Ezetimibe 10 MG Tab PO SCH (08:52)
[2022-08-09] MEDS: Pregabalin 75 MG Cap PO SCH ×2 (08:54→21:01)
[2022-08-09] MEDS: Doxycycline 100 MG Cap PO SCH ×2 (09:00→21:02)
[2022-08-09] MEDS ORDERED: Sodium Phosphate,Monobasic/Sodium Phosphate,Dibasic Enema 133 ML Bottle RECTAL PRN (10:09)
[2022-08-09] MEDS ORDERED: Bisacodyl 10 MG Supp RECTAL ONE (10:30)
[2022-08-09] MEDS ORDERED: Polyethylene Glycol 3350 Powder 17 GM Packet PO ONE (11:00)
[2022-08-09] MEDS: atorvaSTATin 20 MG Tab PO SCH (17:11)
[2022-08-09] MEDS: oxyCODONE 5 MG Tab PO PRN (19:42)
[2022-08-09] MEDS: Nortriptyline 10 MG Cap PO SCH (21:01)
[2022-08-09] MEDS: traZODone 50 MG Tab PO SCH (21:01)
[2022-08-10] MEDS: Pantoprazole 40 MG Tab.CR PO SCH (07:25)
[2022-08-10] MEDS: Ezetimibe 10 MG Tab PO SCH (09:30)
[2022-08-10] MEDS: ARIPiprazole 10 MG Tab PO SCH (09:30)
[2022-08-10] MEDS: DULoxetine 30 MG Cap PO SCH (09:31)
[2022-08-10] MEDS: Ticagrelor 90 MG Tab PO SCH (09:32)
[2022-08-10] MEDS: Doxycycline 100 MG Cap PO SCH (09:32)
[2022-08-10] MEDS: Lactobacillus Rhamnosus GG (Probiotic) Cap PO SCH (09:35)
[2022-08-10] MEDS: Aspirin 81 MG Tab.EC PO SCH (09:35)
[2022-08-10] MEDS: buPROPion 150 MG Tab.SR PO SCH (09:35)
[2022-08-10] MEDS: Lisinopril 2.5 MG Tab PO SCH (09:38)
[2022-08-10] MEDS: Metoprolol Succinate 50 MG Tab.ER PO SCH (09:39)
[2022-08-10] MEDS: Pregabalin 75 MG Cap PO SCH (09:47)
[2022-08-10] MEDS ORDERED: Sodium Phosphate,Monobasic/Sodium Phosphate,Dibasic Enema 133 ML Bottle RECTAL PRN (11:56)
[2022-08-10] MEDS ORDERED: Bisacodyl 10 MG Supp RECTAL ONE (12:15)
[2022-08-10] MEDS ORDERED: Polyethylene Glycol 3350 Powder 17 GM Packet PO ONE (12:15)
== END 2022-08-10 14:00 | disposition home or self-care (01) | DRG 193 ==
LOC: JP.ED 16:27 → UNDOADMIN 18:36 → JP.MS 18:36
PROVIDERS: ADMIT Internal Medicine; ATTEND Internal Medicine
DX: J18.9 Pneumonia, unspecified organism (principal); J96.01 Acute respiratory failure with hypoxia; N17.9 Acute kidney failure, unspecified; N18.31 Chronic kidney disease, stage 3a; E87.6 Hypokalemia; E11.42 Type 2 diabetes mellitus with diabetic polyneuropathy; Z79.82 Long term (current) use of aspirin; Z79.899 Other long term (current) drug therapy; I25.2 Old myocardial infarction; E11.22 Type 2 diabetes mellitus with diabetic chronic kidney disease; I25.10 Atherosclerotic heart disease of native coronary artery without angina pectoris; M79.7 Fibromyalgia; Z86.73 Personal history of transient ischemic attack (TIA), and cerebral infarction without residual deficits; G47.30 Sleep apnea, unspecified; Z20.822 Contact with and (suspected) exposure to COVID-19; E86.0 Dehydration; I12.9 Hypertensive chronic kidney disease with stage 1 through stage 4 chronic kidney disease, or unspecified chronic kidney disease; E11.65 Type 2 diabetes mellitus with hyperglycemia; F41.9 Anxiety disorder, unspecified; F32.A Depression, unspecified; M19.90 Unspecified osteoarthritis, unspecified site; E66.9 Obesity, unspecified; E55.9 Vitamin D deficiency, unspecified; Z90.49 Acquired absence of other specified parts of digestive tract; Z98.890 Other specified postprocedural states; Z88.8 Allergy status to other drugs, medicaments and biological substances; Z88.0 Allergy status to penicillin; Z68.38 Body mass index [BMI] 38.0-38.9, adult
CPT/HCPCS: 0241U; 36415; 71045; 71045-26; 71250; 80048; 81001; 82803; 82947; 83880; 84145; 84484; 85025; 85027; 85379; 85610; 85730; 86140; 93005; 93010; 96374; 99222; 99232; 99238; 99285; 99285-25; A9270-GY; J1815; J1940; J3490; J7030

== ENCOUNTER 2023-06-22 12:49 | Inpatient (IN) | payer MEDICARE ==
[2023-06-22] MEDS ORDERED: Sodium Chloride 0.9% 10 ML Syringe FLUSH PRN (13:08)
[2023-06-22] MEDS ORDERED: Sodium Chloride 0.9% 1,000 ML IV ONE (13:09)
[2023-06-22] MEDS ORDERED: Sodium Chloride 0.9% 500 ML IV ONE ×3 (13:11→14:17)
[2023-06-22 13:26] LABS: BASOPHILS ABSOLUTE AUTO 0.06 K/uL (0.00-0.10); BASOPHILS PERCENT AUTO 0.4 % (0.1-1.3); EOSINOPHILS PERCENT AUTO 0.1 % (0.0-5.4); HEMATOCRIT 42.3 % (34.3-46.0); HEMOGLOBIN 14.3 g/dL (11.2-15.5); IMMATURE GRAN ABSOLUTE AUTO 0.07 K/uL (0.00-0.23); IMMATURE GRAN PERCENT AUTO 0.5 % (0.0-0.7); LYMPHOCYTES ABSOLUTE AUTO 1.64 K/uL (0.8-3.3); LYMPHOCYTES PERCENT AUTO 11.8 % (11.4-47.7); MEAN CORPUSCULAR HEMOGLOBIN 28.4 pg (31.6-35.5); MEAN CORPUSCULAR HGB CONC 33.8 g/dL (31.6-35.5); MEAN CORPUSCULAR VOLUME 83.9 fL (81.4-99.0); MONOCYTES ABSOLUTE AUTO 0.68 K/uL (0.20-0.90); MONOCYTES PERCENT AUTO 4.9 % (3.3-12.6); NEUTROPHILS ABSOLUTE AUTO 11.37 K/uL (1.0-7.6); NEUTROPHILS PERCENT AUTO 82.3 % (40.0-78.1); PLATELET COUNT,PLT 300 K/uL (130-375); RED BLOOD CELL COUNT 5.04 M/uL (3.77-5.24); WHITE BLOOD CELL COUNT,WBC 13.8 K/uL (3.2-11.0)
[2023-06-22 13:28] LABS: EOSINOPHILS ABSOLUTE AUTO 0.02 K/uL (0.00-0.40)
[2023-06-22 13:51] LABS: INFLUENZA A NAA NEGATIVE (NEGATIVE); INFLUENZA B NAA NEGATIVE (NEGATIVE); RESPIRATORY SYNCYTIAL VIR NAA NEGATIVE (NEGATIVE)
[2023-06-22 13:53] LABS: CORONAVIRUS COVID-19 NAA POSITIVE (NEGATIVE)
[2023-06-22 14:01] LABS: A/G RATIO 0.7 (1.2-2.2); ALANINE AMINOTRANSFERASE,ALT 18 U/L (12-78); ALKALINE PHOSPHATASE 101 U/L (46-116); ASPARTATE AMNIOTRANSFERASE,AST 19 U/L (15-37); BILIRUBIN TOTAL 1.3 mg/dL (0.2-1.0); BLOOD UREA NITROGEN,BUN 4 mg/dL (7-18); C-REACTIVE PROTEIN 1.47 mg/dL (<0.50); CALCIUM 8.3 mg/dL (8.5-10.1); CARBON DIOXIDE,CO2 29 mmol/L (21-32); CHLORIDE,CL 95 mmol/L (100-108); CREATININE 1.7 mg/dL (0.6-1.0); EST CRCL DRUG DOSING (CG) 31.66 mL/min; ESTIMATED GFR 36 mL/min (>60); GLUCOSE RANDOM 354 mg/dL (74-106); PROTEIN TOTAL,TP 7.2 g/dL (6.4-8.2); SODIUM,NA 136 mmol/L (140-148); TROPONIN I HIGH SENSITIVITY 42.4 pg/mL (<=60.3)
[2023-06-22 14:07] LABS: ANION GAP 14.4 mmol/L (5.0-14.0); POTASSIUM,K 2.4 mmol/L (3.6-5.2)
[2023-06-22] MEDS ORDERED: Potassium Chloride 20 MEQ in Premix Bag 1 BAG IV ONE (14:10)
[2023-06-22] MEDS ORDERED: Potassium Chloride 20 MEQ Tab.ER PO ONE ×2 (14:10→20:15)
[2023-06-22 14:17] LABS: LACTIC ACID 3.6 mmol/L (0.4-2.0)
[2023-06-22] MEDS ORDERED: cefTRIAXone 1 GM in Sodium Chloride 0.9% 50 ML IV ONE (15:16)
[2023-06-22] MEDS ORDERED: Magnesium Sulfate/Water 2 GM in Premix Bag 1 BAG IV ONE (15:30)
[2023-06-22] MEDS ORDERED: Ondansetron 4 MG Tab.DIS PO PRN (17:11)
[2023-06-22] MEDS ORDERED: guaiFENesin/Dextromethorphan 100-10 MG/5 ML Soln 10 ML Cup PO PRN (17:11)
[2023-06-22] MEDS ORDERED: Ondansetron 4 MG/2 ML SDV IV PRN (17:11)
[2023-06-22] MEDS ORDERED: Non-Formulary Medication 1 Each (Tizanidine [Zanaflex] 4 MG Tablet) PO PRN (17:11)
[2023-06-22] MEDS ORDERED: Non-Formulary Medication 1 Each (Metoprolol Succinate [Toprol Xl] 25 MG Tab.Er) PO SCH (17:11)
[2023-06-22] MEDS ORDERED: Loperamide 2 MG Cap PO PRN (17:11)
[2023-06-22] MEDS ORDERED: Benzocaine/Cetylpyridinium/Menthol Lozenge MUCMEM PRN (17:11)
[2023-06-22] MEDS ORDERED: Non-Formulary Medication 1 Each (Atorvastatin [Lipitor] 80 MG Tablet) PO SCH (18:00)
[2023-06-22] MEDS ORDERED: Pantoprazole 40 MG Vial IV ONE (18:00)
[2023-06-22] MEDS ORDERED: REMDESIVIR 200 MG in Sodium Chloride 0.9% 250 ML IV ONE (18:00)
[2023-06-22] MEDS: Benzonatate 100 MG Cap PO PRN (18:04)
[2023-06-22] MEDS: Metoprolol Succinate 50 MG Tab.ER PO SCH (18:05)
[2023-06-22] MEDS: atorvaSTATin 20 MG Tab PO SCH (18:06)
[2023-06-22] MEDS: NS + KCl 20mEq/L 1,000 ML IV SCH (18:16)
[2023-06-22] MEDS: Insulin Lispro 100 Unit/ML 3 ML KwikPen SUBCUT SCH ×2 (18:44→20:16)
[2023-06-22] MEDS: tiZANidine 2 MG Tab PO PRN (18:46)
[2023-06-22 18:53] LABS: APPEARANCE,URINE SLIGHTLY CLOUDY (CLEAR); BILIRUBIN,URINE NEGATIVE (NEGATIVE); COLOR,URINE YELLOW (YELLOW); GLUCOSE,URINE NEGATIVE (NEGATIVE); KETONES,URINE NEGATIVE (NEGATIVE); LEUKOCYTE ESTERASE,URINE SMALL (NEGATIVE); NITRITE,URINE NEGATIVE (NEGATIVE); OCCULT BLOOD,URINE NEGATIVE (NEGATIVE); PH,URINE 6.5 (5.0-8.0); PROTEIN,URINE NEGATIVE (NEGATIVE); UROBILINOGEN,URINE 0.2 EU/dL (0.2-1.0)
[2023-06-22 19:01] LABS: AMORPHOUS SEDIMENT,URINE FEW; BACTERIA,URINE MANY; EPITHELIAL CELLS,URINE FEW; MUCUS,URINE NOT SEEN; RBC,URINE 0-5 (0-5)
[2023-06-22] MEDS ORDERED: Non-Formulary Medication 1 Each (Hydroxyzine Pamoate [Hydroxyzine Pamoate] 25 MG Capsule) PO SCH (21:00)
[2023-06-22] MEDS ORDERED: Non-Formulary Medication 1 Each (Duloxetine [Cymbalta] 60 MG Cap) PO SCH (21:00)
[2023-06-22] MEDS ORDERED: NORTRIPTYLINE 10 MG PO SCH (21:00)
[2023-06-22] MEDS ORDERED: Non-Formulary Medication 1 Each (Bupropion [Wellbutrin Sr] 150 MG Tab.Sr) PO SCH (21:00)
[2023-06-22] MEDS ORDERED: RANOLAZINE 500 MG PO SCH (21:00)
[2023-06-22] MEDS ORDERED: TICAGRELOR 90 MG PO SCH (21:00)
[2023-06-22] MEDS ORDERED: Non-Formulary Medication 1 Each (Trazodone [Trazodone] 150 MG Tablet) PO SCH (21:00)
[2023-06-22] MEDS ORDERED: Enoxaparin 30 MG/0.3 ML Syringe SUBCUT SCH (21:00)
[2023-06-22] MEDS ORDERED: Non-Formulary Medication 1 Each (Pregabalin [Lyrica] 150 MG Capsule) PO SCH (21:00)
[2023-06-22] MEDS: DULoxetine 30 MG Cap PO SCH (21:54)
[2023-06-22] MEDS: hydrOXYzine HCl 25 MG Tab PO SCH (21:54)
[2023-06-22] MEDS: Enoxaparin 40 MG/0.4 ML Syringe SUBCUT SCH (21:54)
[2023-06-22] MEDS: Nortriptyline 10 MG Cap PO SCH (21:56)
[2023-06-22] MEDS: traZODone 50 MG Tab PO SCH (21:56)
[2023-06-22] MEDS: Pregabalin 75 MG Cap PO SCH (21:56)
[2023-06-22] MEDS: buPROPion 150 MG Tab.SR PO SCH (21:57)
[2023-06-23 05:44] LABS: HEMATOCRIT 32.8 % (34.3-46.0); HEMOGLOBIN 10.9 g/dL (11.2-15.5); MEAN CORPUSCULAR HEMOGLOBIN 28.6 pg (31.6-35.5); MEAN CORPUSCULAR HGB CONC 33.2 g/dL (31.6-35.5); MEAN CORPUSCULAR VOLUME 86.1 fL (81.4-99.0); RED BLOOD CELL COUNT 3.81 M/uL (3.77-5.24); WHITE BLOOD CELL COUNT,WBC 10.1 K/uL (3.2-11.0)
[2023-06-23 05:57] LABS: CALCIUM 7.7 mg/dL (8.5-10.1); CREATININE 1.4 mg/dL (0.6-1.0); EST CRCL DRUG DOSING (CG) 38.44 mL/min; POTASSIUM,K 3.3 mmol/L (3.6-5.2)
[2023-06-23 06:04] LABS: ANION GAP 9.3 mmol/L (5.0-14.0)
[2023-06-23] MEDS: Insulin Lispro 100 Unit/ML 3 ML KwikPen SUBCUT SCH ×4 (07:48→21:23)
[2023-06-23] MEDS: hydrOXYzine HCl 25 MG Tab PO SCH ×2 (08:48→20:49)
[2023-06-23] MEDS: Aspirin 81 MG Tab.Chew PO SCH (08:48)
[2023-06-23] MEDS: ARIPiprazole 10 MG Tab PO SCH (08:48)
[2023-06-23] MEDS: buPROPion 150 MG Tab.SR PO SCH ×2 (08:49→20:50)
[2023-06-23] MEDS: Ezetimibe 10 MG Tab PO SCH (08:49)
[2023-06-23] MEDS: NS + KCl 20mEq/L 1,000 ML IV SCH (08:50)
[2023-06-23] MEDS ORDERED: Non-Formulary Medication 1 Each (Sitagliptin [Januvia] 50 MG Tablet) PO SCH (09:00)
[2023-06-23] MEDS ORDERED: Potassium Chloride 20 MEQ Tab.ER PO ONE ×2 (09:00→14:45)
[2023-06-23] MEDS ORDERED: Non-Formulary Medication 1 Each (Aspirin [Aspirin] 81 MG Tab.Chew) PO SCH (09:00)
[2023-06-23] MEDS ORDERED: Non-Formulary Medication 1 Each (Aripiprazole [Abilify] 5 MG Tablet) PO SCH (09:00)
[2023-06-23] MEDS ORDERED: Lisinopril 2.5 MG Tab PO SCH (09:00)
[2023-06-23] MEDS ORDERED: BUPROPION HCL 150 MG PO SCH (09:00)
[2023-06-23] MEDS ORDERED: EZETIMIBE 10 MG PO SCH (09:00)
[2023-06-23] MEDS ORDERED: LISINOPRIL 2.5 MG PO SCH (09:00)
[2023-06-23] MEDS: Pregabalin 75 MG Cap PO SCH ×2 (09:07→21:23)
[2023-06-23] MEDS: DULoxetine 30 MG Cap PO SCH ×2 (09:08→20:49)
[2023-06-23] MEDS: Potassium Chloride 10 MEQ in Premix Bag 1 BAG IV SCH ×2 (15:10→16:24)
[2023-06-23] MEDS ORDERED: REMDESIVIR 100 MG in Sodium Chloride 0.9% 100 ML IV SCH (17:00)
[2023-06-23] MEDS: atorvaSTATin 20 MG Tab PO SCH (17:43)
[2023-06-23] MEDS: Metoprolol Succinate 50 MG Tab.ER PO SCH (17:46)
[2023-06-23] MEDS: Enoxaparin 40 MG/0.4 ML Syringe SUBCUT SCH (20:49)
[2023-06-23] MEDS: traZODone 50 MG Tab PO SCH (20:49)
[2023-06-23] MEDS: Nortriptyline 10 MG Cap PO SCH (20:50)
[2023-06-23] MEDS: tiZANidine 2 MG Tab PO PRN (21:24)
[2023-06-23] MEDS: Benzonatate 100 MG Cap PO PRN (21:34)
[2023-06-23] MEDS ORDERED: Sodium Chloride 0.9% 1,000 ML IV ONE (23:24)
[2023-06-24] MEDS ORDERED: Sodium Chloride 0.9% 1,000 ML IV ONE (00:51)
[2023-06-24 06:08] LABS: ANION GAP 7.1 mmol/L (5.0-14.0); CALCIUM 7.7 mg/dL (8.5-10.1); CREATININE 1.4 mg/dL (0.6-1.0); EST CRCL DRUG DOSING (CG) 38.44 mL/min; POTASSIUM,K 4.2 mmol/L (3.6-5.2)
[2023-06-24 07:17] LABS: APPEARANCE,URINE CLEAR (CLEAR); BILIRUBIN,URINE NEGATIVE (NEGATIVE); COLOR,URINE YELLOW (YELLOW); GLUCOSE,URINE NEGATIVE (NEGATIVE); KETONES,URINE NEGATIVE (NEGATIVE); LEUKOCYTE ESTERASE,URINE NEGATIVE (NEGATIVE); NITRITE,URINE NEGATIVE (NEGATIVE); OCCULT BLOOD,URINE NEGATIVE (NEGATIVE); PROTEIN,URINE NEGATIVE (NEGATIVE); UROBILINOGEN,URINE 0.2 EU/dL (0.2-1.0)
[2023-06-24 07:29] LABS: AMORPHOUS SEDIMENT,URINE NOT SEEN; BACTERIA,URINE NOT SEEN; EPITHELIAL CELLS,URINE NOT SEEN; MUCUS,URINE NOT SEEN; RBC,URINE NOT SEEN (0-5); WBC,URINE NOT SEEN (0-5)
[2023-06-24] MEDS: Insulin Lispro 100 Unit/ML 3 ML KwikPen SUBCUT SCH ×4 (07:53→21:37)
[2023-06-24] MEDS: hydrOXYzine HCl 25 MG Tab PO SCH ×2 (08:47→20:33)
[2023-06-24] MEDS: DULoxetine 30 MG Cap PO SCH ×2 (08:48→20:32)
[2023-06-24] MEDS: buPROPion 150 MG Tab.SR PO SCH ×2 (08:48→20:33)
[2023-06-24] MEDS: Ezetimibe 10 MG Tab PO SCH (08:48)
[2023-06-24] MEDS: ARIPiprazole 10 MG Tab PO SCH (08:48)
[2023-06-24] MEDS: Acetaminophen 325 MG Tab PO PRN ×2 (08:48→14:28)
[2023-06-24] MEDS: Pregabalin 75 MG Cap PO SCH ×2 (08:48→20:36)
[2023-06-24] MEDS: Aspirin 81 MG Tab.Chew PO SCH (08:48)
[2023-06-24] MEDS: SODIUM CHLORIDE 0.9% IV ONE ×2 (13:45→14:22)
[2023-06-24] MEDS: REMDESIVIR IV ONE ×2 (13:45→14:22)
[2023-06-24] MEDS: Metoprolol Succinate 50 MG Tab.ER PO SCH (17:07)
[2023-06-24] MEDS: atorvaSTATin 20 MG Tab PO SCH (17:07)
[2023-06-24] MEDS: Enoxaparin 40 MG/0.4 ML Syringe SUBCUT SCH (20:33)
[2023-06-24] MEDS: traZODone 50 MG Tab PO SCH (20:33)
[2023-06-24] MEDS: Nortriptyline 10 MG Cap PO SCH (20:34)
[2023-06-25] MEDS: Acetaminophen 325 MG Tab PO PRN ×2 (01:46→08:15)
[2023-06-25] MEDS: Insulin Lispro 100 Unit/ML 3 ML KwikPen SUBCUT SCH (07:39)
[2023-06-25] MEDS: Aspirin 81 MG Tab.Chew PO SCH (08:15)
[2023-06-25] MEDS: DULoxetine 30 MG Cap PO SCH (08:15)
[2023-06-25] MEDS: Ezetimibe 10 MG Tab PO SCH (08:16)
[2023-06-25] MEDS: buPROPion 150 MG Tab.SR PO SCH (08:16)
[2023-06-25] MEDS: ARIPiprazole 10 MG Tab PO SCH (08:16)
[2023-06-25] MEDS: hydrOXYzine HCl 25 MG Tab PO SCH (08:16)
[2023-06-25] MEDS: Pregabalin 75 MG Cap PO SCH (08:16)
[2023-06-25] MEDS ORDERED: tiZANidine 2 MG Tab PO PRN (10:47)
== END 2023-06-25 13:47 | disposition home or self-care (01) | DRG 640 ==
LOC: JP.ED 12:49 → JP.MS 16:36 → UNDOADMOB 16:36 → JP.MS 06-23 15:36 → OBSVTOIN 06-23 15:36
PROVIDERS: ADMIT Internal Medicine; ATTEND Internal Medicine
PROC: XW033E5 Introduction of Remdesivir Anti-infective into Peripheral Vein, Percutaneous Approach, New Technology Group 5 (ICD-10-PCS; principal; 2023-06-23)
DX: E87.6 Hypokalemia (principal); U07.1 COVID-19; I13.0 Hypertensive heart and chronic kidney disease with heart failure and stage 1 through stage 4 chronic kidney disease, or unspecified chronic kidney disease; I11.0 Hypertensive heart disease with heart failure; I50.9 Heart failure, unspecified; I50.22 Chronic systolic (congestive) heart failure; I25.10 Atherosclerotic heart disease of native coronary artery without angina pectoris; E11.9 Type 2 diabetes mellitus without complications; E86.0 Dehydration; N18.31 Chronic kidney disease, stage 3a; Z86.73 Personal history of transient ischemic attack (TIA), and cerebral infarction without residual deficits; E11.22 Type 2 diabetes mellitus with diabetic chronic kidney disease; E11.42 Type 2 diabetes mellitus with diabetic polyneuropathy; K59.09 Other constipation; I25.2 Old myocardial infarction; E66.9 Obesity, unspecified; F41.9 Anxiety disorder, unspecified; F32.A Depression, unspecified; E87.20 Acidosis, unspecified; E11.65 Type 2 diabetes mellitus with hyperglycemia; I95.9 Hypotension, unspecified; Z88.1 Allergy status to other antibiotic agents; Z88.0 Allergy status to penicillin; Z95.5 Presence of coronary angioplasty implant and graft; Z79.82 Long term (current) use of aspirin; Z79.899 Other long term (current) drug therapy; Z87.891 Personal history of nicotine dependence; Z90.49 Acquired absence of other specified parts of digestive tract; Z68.39 Body mass index [BMI] 39.0-39.9, adult
CPT/HCPCS: 0241U; 36415; 51702; 51703; 51798; 71045; 80048; 80053; 81001; 82947; 83605; 83735; 83880; 84132; 84145; 84484; 85025; 85027; 86140; 87040; 87086; 93005; 93010; 96361; 96365; 96366; 96368; 99285; 96372; 96375; 96376; 99232; 99238; A9270-GY; C1758; C9113; G0378; J0696; J1650; J1815; J3475; J3480; J3490; J7030; J7050

== ENCOUNTER 2023-07-16 16:30 | Emergency (ER) | payer MEDICARE ==
[2023-07-16 17:39] LABS: BASOPHILS PERCENT AUTO 0.6 % (0.1-1.3); EOSINOPHILS ABSOLUTE AUTO 0.08 K/uL (0.00-0.40); EOSINOPHILS PERCENT AUTO 0.5 % (0.0-5.4); HEMATOCRIT 46.4 % (34.3-46.0); HEMOGLOBIN 15.6 g/dL (11.2-15.5); IMMATURE GRAN ABSOLUTE AUTO 0.08 K/uL (0.00-0.23); IMMATURE GRAN PERCENT AUTO 0.5 % (0.0-0.7); LYMPHOCYTES PERCENT AUTO 14.9 % (11.4-47.7); MEAN CORPUSCULAR HEMOGLOBIN 29.1 pg (31.6-35.5); MEAN CORPUSCULAR HGB CONC 33.6 g/dL (31.6-35.5); MEAN CORPUSCULAR VOLUME 86.6 fL (81.4-99.0); MONOCYTES ABSOLUTE AUTO 0.91 K/uL (0.20-0.90); MONOCYTES PERCENT AUTO 5.9 % (3.3-12.6); NEUTROPHILS ABSOLUTE AUTO 11.95 K/uL (1.0-7.6); NEUTROPHILS PERCENT AUTO 77.6 % (40.0-78.1); PLATELET COUNT,PLT 318 K/uL (130-375); RED BLOOD CELL COUNT 5.36 M/uL (3.77-5.24); WHITE BLOOD CELL COUNT,WBC 15.4 K/uL (3.2-11.0)
[2023-07-16] MEDS: Sodium Chloride 0.9% 1,000 ML IV SCH ×2 (17:41→18:52)
[2023-07-16] MEDS: Ondansetron 4 MG/2 ML SDV IVPUSH ONE (17:41)
[2023-07-16 18:02] LABS: A/G RATIO 0.7 (1.2-2.2); ALANINE AMINOTRANSFERASE,ALT 17 U/L (12-78); ALBUMIN 3.6 g/dL (3.4-5.0); ALKALINE PHOSPHATASE 127 U/L (46-116); ASPARTATE AMNIOTRANSFERASE,AST 16 U/L (15-37); BLOOD UREA NITROGEN,BUN 10 mg/dL (7-18); CALCIUM 8.9 mg/dL (8.5-10.1); CARBON DIOXIDE,CO2 24 mmol/L (21-32); CHLORIDE,CL 96 mmol/L (100-108); CREATININE 1.8 mg/dL (0.6-1.0); EST CRCL DRUG DOSING (CG) 30.55 mL/min; ESTIMATED GFR 33 mL/min (>60); GLUCOSE RANDOM 336 mg/dL (74-106); POTASSIUM,K 3.8 mmol/L (3.6-5.2); PROTEIN TOTAL,TP 8.9 g/dL (6.4-8.2); SODIUM,NA 134 mmol/L (140-148)
[2023-07-16 18:03] LABS: ANION GAP 17.8 mmol/L (5.0-14.0)
[2023-07-16 18:15] LABS: CORONAVIRUS COVID-19 NAA NEGATIVE (NEGATIVE); INFLUENZA A NAA NEGATIVE (NEGATIVE); INFLUENZA B NAA NEGATIVE (NEGATIVE); RESPIRATORY SYNCYTIAL VIR NAA NEGATIVE (NEGATIVE)
[2023-07-16 19:53] LABS: APPEARANCE,URINE TURBID (CLEAR); BILIRUBIN,URINE SMALL (NEGATIVE); COLOR,URINE YELLOW (YELLOW); GLUCOSE,URINE NEGATIVE (NEGATIVE); KETONES,URINE NEGATIVE (NEGATIVE); LEUKOCYTE ESTERASE,URINE SMALL (NEGATIVE); NITRITE,URINE NEGATIVE (NEGATIVE); OCCULT BLOOD,URINE MODERATE (NEGATIVE); PROTEIN,URINE 100 mg/dL (NEGATIVE); UROBILINOGEN,URINE 0.2 EU/dL (0.2-1.0)
[2023-07-16 20:00] LABS: BACTERIA,URINE MODERATE; EPITHELIAL CELLS,URINE MANY; RBC,URINE 0-5 (0-5); WBC,URINE 75-100 (0-5)
[2023-07-16 20:01] LABS: AMORPHOUS SEDIMENT,URINE MODERATE; MUCUS,URINE FEW
[2023-07-16 20:05] LABS: AMPHETAMINES SCREEN, URINE NEGATIVE (NEGATIVE); BARBITURATE SCREEN,URINE NEGATIVE (NEGATIVE); BENZODIAZEPINES SCREEN,URINE NEGATIVE (NEGATIVE); METHADONE SCREEN, URINE NEGATIVE (NEGATIVE); METHAMPHETAMINES SCREEN, URINE NEGATIVE (NEGATIVE); OXYCODONE SCREEN,URINE NEGATIVE (NEGATIVE); PROPOXYPHENE SCREEN,URINE NEGATIVE (NEGATIVE); THC SCREEN,URINE 50 NG/ML NEGATIVE (NEGATIVE)
== END 2023-07-16 21:20 | disposition home or self-care (01) ==
LOC: JP.ED 16:30
DX: E86.0 Dehydration (principal); E66.9 Obesity, unspecified; I13.0 Hypertensive heart and chronic kidney disease with heart failure and stage 1 through stage 4 chronic kidney disease, or unspecified chronic kidney disease; I50.9 Heart failure, unspecified; N18.9 Chronic kidney disease, unspecified; E11.22 Type 2 diabetes mellitus with diabetic chronic kidney disease; I25.2 Old myocardial infarction; Z88.1 Allergy status to other antibiotic agents; Z86.73 Personal history of transient ischemic attack (TIA), and cerebral infarction without residual deficits; Z86.19 Personal history of other infectious and parasitic diseases; Z68.37 Body mass index [BMI] 37.0-37.9, adult
CPT/HCPCS: 0241U; 36415; 80053; 80305; 81001; 83735; 84484; 85025; 87086; 93005; 96361; 96374; 99285; J2405; J7030

== ENCOUNTER 2024-05-11 13:36 | Inpatient (IN) | payer MEDICARE ==
[2024-05-11] MEDS ORDERED: Non-Formulary Medication 1 Each (Duloxetine [Cymbalta] 60 MG Cap) PO SCH (15:15)
[2024-05-11] MEDS ORDERED: Metoprolol Succinate 25 MG Tab.ER PO SCH (15:15)
[2024-05-11] MEDS ORDERED: Non-Formulary Medication 1 Each (Sitagliptin [Januvia] 50 MG Tablet) PO SCH (15:15)
[2024-05-11] MEDS ORDERED: Non-Formulary Medication 1 Each (Aripiprazole [Abilify] 5 MG Tablet) PO SCH (15:15)
[2024-05-11 15:19] LABS: BASOPHILS ABSOLUTE AUTO 0.08 K/uL (0.00-0.10); BASOPHILS PERCENT AUTO 0.6 % (0.1-1.3); EOSINOPHILS ABSOLUTE AUTO 0.03 K/uL (0.00-0.40); EOSINOPHILS PERCENT AUTO 0.2 % (0.0-5.4); HEMATOCRIT 35.1 % (34.3-46.0); HEMOGLOBIN 12.7 g/dL (11.2-15.5); IMMATURE GRAN ABSOLUTE AUTO 0.06 K/uL (0.00-0.23); IMMATURE GRAN PERCENT AUTO 0.5 % (0.0-0.7); LYMPHOCYTES ABSOLUTE AUTO 1.92 K/uL (0.8-3.3); LYMPHOCYTES PERCENT AUTO 15.1 % (11.4-47.7); MEAN CORPUSCULAR HEMOGLOBIN 31.2 pg (31.6-35.5); MEAN CORPUSCULAR HGB CONC 36.2 g/dL (31.6-35.5); MEAN CORPUSCULAR VOLUME 86.2 fL (81.4-99.0); MONOCYTES ABSOLUTE AUTO 0.76 K/uL (0.20-0.90); NEUTROPHILS ABSOLUTE AUTO 9.88 K/uL (1.0-7.6); NEUTROPHILS PERCENT AUTO 77.6 % (40.0-78.1); PLATELET COUNT,PLT 305 K/uL (130-375); RED BLOOD CELL COUNT 4.07 M/uL (3.77-5.24); WHITE BLOOD CELL COUNT,WBC 12.7 K/uL (3.2-11.0)
[2024-05-11 15:40] LABS: A/G RATIO 0.9 (1.2-2.2); ALANINE AMINOTRANSFERASE,ALT 16 U/L (12-78); ALBUMIN 3.2 g/dL (3.4-5.0); ALKALINE PHOSPHATASE 121 U/L (46-116); ASPARTATE AMNIOTRANSFERASE,AST 24 U/L (15-37); BILIRUBIN TOTAL 1.4 mg/dL (0.2-1.0); BLOOD UREA NITROGEN,BUN 4 mg/dL (7-18); CARBON DIOXIDE,CO2 29 mmol/L (21-32); CHLORIDE,CL 98 mmol/L (100-108); CREATININE 1.5 mg/dL (0.6-1.0); EST CRCL DRUG DOSING (CG) 41.69 mL/min; ESTIMATED GFR 41 mL/min (>60); GLUCOSE RANDOM 247 mg/dL (74-106); PROTEIN TOTAL,TP 6.9 g/dL (6.4-8.2); SODIUM,NA 138 mmol/L (140-148)
[2024-05-11 16:05] LABS: ANION GAP 13.2 mmol/L (5.0-14.0); POTASSIUM,K 2.2 mmol/L (3.6-5.2)
[2024-05-11] MEDS ORDERED: Potassium Chloride 20 MEQ in Premix Bag 1 BAG IV ONE (16:05)
[2024-05-11] MEDS ORDERED: Sodium Chloride 0.9% 10 ML Syringe FLUSH PRN (16:05)
[2024-05-11] MEDS: Potassium Chloride 20 MEQ Tab.ER PO ONE ×2 (16:39→22:36)
[2024-05-11] MEDS: Ondansetron 4 MG Tab.DIS PO ONE (16:46)
[2024-05-11] MEDS: LORazepam 0.5 MG Tab PO ONE (17:12)
[2024-05-11] MEDS: buPROPion 150 MG Tab.SR PO SCH (17:55)
[2024-05-11] MEDS: Lisinopril 2.5 MG Tab PO SCH (17:56)
[2024-05-11] MEDS: DULoxetine 30 MG Cap PO ONE (17:59)
[2024-05-11] MEDS: Saxagliptin 2.5 MG Tab PO SCH (18:00)
[2024-05-11] MEDS: ARIPiprazole 10 MG Tab PO SCH (18:00)
[2024-05-11] MEDS: Metoprolol Succinate 25 MG Tab.ER PO SCH (18:00)
[2024-05-11] MEDS: Sodium Chloride 0.9% 1,000 ML IV SCH ×2 (19:03→20:07)
[2024-05-11] MEDS ORDERED: Sennosides/Docusate Sodium 50-8.6 MG Tab PO PRN (20:04)
[2024-05-11] MEDS ORDERED: Melatonin 3 MG Tab PO PRN (20:04)
[2024-05-11] MEDS ORDERED: Ondansetron 4 MG Tab.DIS PO PRN (20:04)
[2024-05-11] MEDS ORDERED: Magnesium Hydroxide 400 MG/5 ML Susp 30 ML Cup PO PRN (20:04)
[2024-05-11] MEDS ORDERED: Ticagrelor 90 MG Tab PO SCH (21:00)
[2024-05-11 21:24] LABS: MAGNESIUM 1.4 mg/dL (1.8-2.4)
[2024-05-11 21:25] LABS: POTASSIUM,K 2.6 mmol/L (3.6-5.2)
[2024-05-11] MEDS: atorvaSTATin 20 MG Tab PO SCH (22:32)
[2024-05-11] MEDS: traZODone 50 MG Tab PO SCH (22:32)
[2024-05-11] MEDS: Pregabalin 50 MG Cap PO SCH (22:33)
[2024-05-11] MEDS: Potassium Chloride 10 MEQ in Premix Bag 1 BAG IV SCH (22:33)
[2024-05-11] MEDS: Nortriptyline 10 MG Cap PO SCH (22:33)
[2024-05-11] MEDS: Magnesium Oxide 400 MG Tab PO SCH (22:33)
[2024-05-11] MEDS: Ondansetron 4 MG/2 ML SDV IV PRN (23:42)
[2024-05-12 03:12] LABS: HEMATOCRIT 31.1 % (34.3-46.0); HEMOGLOBIN 11.1 g/dL (11.2-15.5); MEAN CORPUSCULAR HEMOGLOBIN 31.5 pg (31.6-35.5); MEAN CORPUSCULAR HGB CONC 35.7 g/dL (31.6-35.5); MEAN CORPUSCULAR VOLUME 88.4 fL (81.4-99.0); RED BLOOD CELL COUNT 3.52 M/uL (3.77-5.24); WHITE BLOOD CELL COUNT,WBC 12.9 K/uL (3.2-11.0)
[2024-05-12 03:29] LABS: CALCIUM 8.3 mg/dL (8.5-10.1); CREATININE 1.3 mg/dL (0.6-1.0); EST CRCL DRUG DOSING (CG) 40.92 mL/min; POTASSIUM,K 3.2 mmol/L (3.6-5.2)
[2024-05-12 03:31] LABS: ANION GAP 8.2 mmol/L (5.0-14.0)
[2024-05-12] MEDS: Acetaminophen 325 MG Tab PO PRN (06:29)
[2024-05-12] MEDS: Ezetimibe 10 MG Tab PO SCH (08:26)
[2024-05-12] MEDS: Aspirin 81 MG Tab.Chew PO SCH (08:26)
[2024-05-12] MEDS ORDERED: DULoxetine 30 MG Cap PO SCH (09:00)
[2024-05-12] MEDS: Potassium Chloride 20 MEQ Tab.ER PO ONE (09:17)
[2024-05-12] MEDS: Magnesium Sulfate/Water Premix 2 GM in Premix Bag 1 BAG IV SCH (09:20)
[2024-05-12] MEDS ORDERED: Non-Formulary Medication 1 Each (Hydroxyzine Pamoate [Hydroxyzine Pamoate] 25 MG Capsule) PO SCH (13:30)
[2024-05-12] MEDS: LORazepam 0.5 MG Tab PO PRN (13:40)
[2024-05-12] MEDS ORDERED: Sodium Chloride 0.9% 10 ML Syringe IV PRN (14:38)
[2024-05-12] MEDS: hydrOXYzine HCl 25 MG Tab PO SCH (15:11)
[2024-05-12] MEDS: tiZANidine 2 MG Tab PO PRN (18:49)
[2024-05-12] MEDS: buPROPion 150 MG Tab.SR PO SCH (20:50)
[2024-05-13 04:47] LABS: HEMATOCRIT 29.9 % (34.3-46.0); HEMOGLOBIN 10.2 g/dL (11.2-15.5); MEAN CORPUSCULAR HEMOGLOBIN 31.1 pg (31.6-35.5); MEAN CORPUSCULAR HGB CONC 34.1 g/dL (31.6-35.5); MEAN CORPUSCULAR VOLUME 91.2 fL (81.4-99.0); RED BLOOD CELL COUNT 3.28 M/uL (3.77-5.24); WHITE BLOOD CELL COUNT,WBC 8.6 K/uL (3.2-11.0)
[2024-05-13 05:05] LABS: ANION GAP 6.1 mmol/L (5.0-14.0); CALCIUM 8.1 mg/dL (8.5-10.1); CREATININE 1.4 mg/dL (0.6-1.0); POTASSIUM,K 3.8 mmol/L (3.6-5.2)
== END 2024-05-13 14:10 | disposition home or self-care (01) | DRG 641 ==
LOC: JP.ED 13:36 → JP.MS 18:24 → OBSVTOIN 05-12 10:41
PROVIDERS: ADMIT Registered Nurse; ATTEND Internal Medicine
DX: E87.6 Hypokalemia (principal); I10 Essential (primary) hypertension; I13.0 Hypertensive heart and chronic kidney disease with heart failure and stage 1 through stage 4 chronic kidney disease, or unspecified chronic kidney disease; K52.9 Noninfective gastroenteritis and colitis, unspecified; E86.0 Dehydration; E11.9 Type 2 diabetes mellitus without complications; E11.22 Type 2 diabetes mellitus with diabetic chronic kidney disease; N18.31 Chronic kidney disease, stage 3a; I50.9 Heart failure, unspecified; I25.10 Atherosclerotic heart disease of native coronary artery without angina pectoris; H54.7 Unspecified visual loss; E78.00 Pure hypercholesterolemia, unspecified; M19.90 Unspecified osteoarthritis, unspecified site; F43.10 Post-traumatic stress disorder, unspecified; F41.8 Other specified anxiety disorders; E83.42 Hypomagnesemia; Z88.1 Allergy status to other antibiotic agents; I25.2 Old myocardial infarction; Z88.8 Allergy status to other drugs, medicaments and biological substances; Z79.1 Long term (current) use of non-steroidal anti-inflammatories (NSAID); Z79.82 Long term (current) use of aspirin; Z79.891 Long term (current) use of opiate analgesic; Z95.5 Presence of coronary angioplasty implant and graft; Z87.81 Personal history of (healed) traumatic fracture; Z90.49 Acquired absence of other specified parts of digestive tract; Z98.890 Other specified postprocedural states; Z87.891 Personal history of nicotine dependence; Z86.73 Personal history of transient ischemic attack (TIA), and cerebral infarction without residual deficits; Z79.2 Long term (current) use of antibiotics; Z79.899 Other long term (current) drug therapy; Z79.02 Long term (current) use of antithrombotics/antiplatelets
CPT/HCPCS: 36415; 80048; 80053; 83735; 84132; 85025; 85027; 93005; 93010; 96365; 96366; 99222; 99232; 99238; 99285; 99285-25; A9270-GY; J2405; J3475; J3480; J3490; J7030; Q0162

== ENCOUNTER 2024-05-20 12:21 | Emergency (ER) | payer MEDICARE ==
[2024-05-20 13:34] LABS: BASOPHILS ABSOLUTE AUTO 0.04 K/uL (0.00-0.10); BASOPHILS PERCENT AUTO 0.3 % (0.1-1.3); EOSINOPHILS PERCENT AUTO 0.2 % (0.0-5.4); HEMATOCRIT 30.2 % (34.3-46.0); HEMOGLOBIN 10.5 g/dL (11.2-15.5); IMMATURE GRAN ABSOLUTE AUTO 0.07 K/uL (0.00-0.23); IMMATURE GRAN PERCENT AUTO 0.6 % (0.0-0.7); MEAN CORPUSCULAR HEMOGLOBIN 31.7 pg (31.6-35.5); MEAN CORPUSCULAR HGB CONC 34.8 g/dL (31.6-35.5); MEAN CORPUSCULAR VOLUME 91.2 fL (81.4-99.0); MONOCYTES ABSOLUTE AUTO 0.62 K/uL (0.20-0.90); MONOCYTES PERCENT AUTO 4.9 % (3.3-12.6); NEUTROPHILS ABSOLUTE AUTO 11.38 K/uL (1.0-7.6); PLATELET COUNT,PLT 224 K/uL (130-375); RED BLOOD CELL COUNT 3.31 M/uL (3.77-5.24); WHITE BLOOD CELL COUNT,WBC 12.6 K/uL (3.2-11.0)
[2024-05-20 13:36] LABS: EOSINOPHILS ABSOLUTE AUTO 0.02 K/uL (0.00-0.40)
[2024-05-20 13:56] LABS: A/G RATIO 0.8 (1.2-2.2); ALANINE AMINOTRANSFERASE,ALT 12 U/L (12-78); ALKALINE PHOSPHATASE 101 U/L (46-116); ASPARTATE AMNIOTRANSFERASE,AST 17 U/L (15-37); BILIRUBIN TOTAL 1.9 mg/dL (0.2-1.0); BLOOD UREA NITROGEN,BUN 7 mg/dL (7-18); CALCIUM 8.4 mg/dL (8.5-10.1); CARBON DIOXIDE,CO2 28 mmol/L (21-32); CHLORIDE,CL 102 mmol/L (100-108); CREATININE 1.3 mg/dL (0.6-1.0); EST CRCL DRUG DOSING (CG) 40.92 mL/min; ESTIMATED GFR 49 mL/min (>60); GLUCOSE RANDOM 140 mg/dL (74-106); POTASSIUM,K 3.9 mmol/L (3.6-5.2); PROTEIN TOTAL,TP 6.7 g/dL (6.4-8.2); SODIUM,NA 139 mmol/L (140-148)
[2024-05-20 13:58] LABS: ANION GAP 12.9 mmol/L (5.0-14.0)
[2024-05-20 13:59] LABS: C-REACTIVE PROTEIN 7.26 mg/dL (<0.50); MAGNESIUM 1.8 mg/dL (1.8-2.4)
[2024-05-20 14:39] LABS: APPEARANCE,URINE CLOUDY (CLEAR); BILIRUBIN,URINE NEGATIVE (NEGATIVE); COLOR,URINE YELLOW (YELLOW); GLUCOSE,URINE NEGATIVE (NEGATIVE); KETONES,URINE NEGATIVE (NEGATIVE); LEUKOCYTE ESTERASE,URINE TRACE (NEGATIVE); NITRITE,URINE NEGATIVE (NEGATIVE); OCCULT BLOOD,URINE NEGATIVE (NEGATIVE); PH,URINE 7.5 (5.0-8.0); PROTEIN,URINE TRACE mg/dL (NEGATIVE)
[2024-05-20 14:48] LABS: AMORPHOUS SEDIMENT,URINE NOT SEEN; BACTERIA,URINE MODERATE; EPITHELIAL CELLS,URINE MANY; MUCUS,URINE RARE; RBC,URINE 0-5 (0-5); WBC,URINE 0-5 (0-5)
[2024-05-20] MEDS: Bisacodyl 10 MG Supp RECTAL ONE (15:27)
[2024-05-20] MEDS: Furosemide 20 MG/2 ML VIAL IVPUSH ONE (16:46)
== END 2024-05-20 19:43 | disposition home or self-care (01) ==
LOC: JP.ED 12:21
DX: I13.0 Hypertensive heart and chronic kidney disease with heart failure and stage 1 through stage 4 chronic kidney disease, or unspecified chronic kidney disease (principal); I50.9 Heart failure, unspecified; E11.42 Type 2 diabetes mellitus with diabetic polyneuropathy; N18.9 Chronic kidney disease, unspecified; E11.22 Type 2 diabetes mellitus with diabetic chronic kidney disease; Z90.49 Acquired absence of other specified parts of digestive tract; Z87.891 Personal history of nicotine dependence; Z79.899 Other long term (current) drug therapy; Z79.82 Long term (current) use of aspirin; Z79.84 Long term (current) use of oral hypoglycemic drugs; Z88.1 Allergy status to other antibiotic agents
CPT/HCPCS: 36415; 71046; 74019; 80053; 81001; 82550; 83735; 83880; 84145; 85025; 85651; 86140; 96374; 99285; A9270; J1940